=== PATIENT | female | born 1955 | race African-American/Black ===

== ENCOUNTER 2016-09-18 23:29 | Inpatient (IN) ==
[2016-09-18] MEDS: PROPOFOL 1,000 MG/100 ML BOTTLE IV SCH (23:50)
[2016-09-18] MEDS ORDERED: SUCCINYLCHOLINE 200 MG/10 ML VIAL IV STA (23:54)
[2016-09-18] MEDS ORDERED: MAGNESIUM SULF RIDER 2 GM in PREMIX 1 EACH IV STA (23:54)
[2016-09-18] MEDS ORDERED: MORPHINE 2 MG/1 ML SYRINGE IV STA (23:54)
[2016-09-18] MEDS ORDERED: ONDANSETRON ODT 4 MG TABLET PO STA (23:54)
[2016-09-18] MEDS ORDERED: methylPREDNISolone SOD SUC 125 MG/2 ML VIAL IV STA (23:54)
[2016-09-18] MEDS ORDERED: cefTRIAXone 1,000 MG in SODIUM CHLORIDE 0.9% 100 ML IV STA (23:54)
[2016-09-18] MEDS ORDERED: ETOMIDATE 20 MG/10 ML VIAL IV ONE (23:54)
[2016-09-18] MEDS ORDERED: PROPOFOL 1,000 MG/100 ML BOTTLE IV ONE (23:55)
[2016-09-18] MEDS ORDERED: ALBUTEROL 2.5 MG/3 ML NEB RESP TX ONE (23:57)
--- NOTE | 2016-09-19 00:03 | Emergency Department Note ---
Arrival - Arrival Chief Complaint: Shortness of Breath Stated Complaint: SOB ED Nursing Triage Note: pt has had a cold for a week and today got worse and pt is sob. Mode of Arrival: Wheelchair Time Seen by Provider: 09/18/16 23:54 - History of Present Illness HPI Narrative: The patient presents complaining of shortness of breath which began today and worsened acutely tonight. She denies chest pain. She does not know she has had fever but she states she felt "warm". The patient does still smoke cigarettes. She when she coughs she has not produced any sputum. That triage she was too dyspneic to contribute much more than that to the history. Allergies/Adverse Reactions: Allergies Allergy/AdvReac Type Severity Reaction Status Date / Time No Known Allergies Allergy Unverified 09/18/16 23:35 Home Medications: Home Medications Medication Instructions Recorded Confirmed Type No Known Home Medications [No 09/18/16 09/18/16 History Known Home Medications] Review of System - Review of System 12 point system: reviewed and no additional remarkable complaints except as stated Medical,Surgical,& Family Hx - Medical History Respiratory: History of: COPD - Social History Smoking Status: Unknown if ever smoked Frequency of Alcohol Use: Frequently Type of Drug Use: None Exam Physical Examination: General: Patient is well-developed and well-nourished with severe respiratory distress noted. GCS 15. The patient is too dyspneic to speak in more than 1 or 2 word sentences. HEENT: The extraocular muscles are intact. Oropharynx is moist. There is no erythema or exudate. The tympanic membranes are shiny bilaterally. Neck: There is no adenopathy. Full range of motion is noted without pain. The trachea is midline. No JVD is present. Lungs: There is normal excursion of the chest with the lungs demonstrating coarse breath sounds bilaterally. The patient is tachypneic. No subcostal retractions are present. There is no point tenderness present. Heart: The heart has a regular rate and rhythm with no gallops or murmurs. Note is made that she is in sinus tach with rate approximately 135 bpm. Abdomen: The abdomen is nontender and nondistended with no rebound, guarding, or masses. Bowel sounds are normal. Back: The back demonstrates a normal appearance with no evidence of trauma. Genitourinary: Not examined. Extremities: The extremities demonstrate no clubbing, cyanosis, or edema. The visualized range of motion is normal. They appear atraumatic. Neuro: Cranial nerves II through XII are checked and intact. There is no focal motor or sensory deficit seen in the extremities. Skin: Skin is warm and dry with no evidence of rash. Vital Signs: Vital Signs Temperature 95.8 F L 09/18/16 23:32 Pulse Rate 143 H 09/18/16 23:32 Respiratory Rate 14 09/18/16 23:58 Blood Pressure 213/178 09/18/16 23:32 O2 Sat by Pulse Oximetry 94 L 09/18/16 23:32 Course - Consultations Consultation #1: Dr. Wade will evaluate and admit the patient. Time: 00:33 Procedures - Intubation Time out performed: Yes sedative: Etomidate Mg Given: 10 paralytic: Succinylcholine Mg Given: 100 Laryngoscope: fiber optic video scope ET Tube Size: 8 ET Tube Uncuffed: No Tube Secured Depth (cm): 23 Tube Secured Location: teeth Tube Placement Confirmation: visualized tube passing through cords, equal breath sounds bilaterally, no breath sounds over epigastrium, confirmation by capnometry, confirmation detector color change Patient Tolerated Procedure: well Intubation Complications: none Results - Labs CBC & BMP: 09/18/16 23:52 09/18/16 23:52 Lab Results: I have reviewed the patients labs Labs: Lab Results WBC 6.8 T/CUMM (4-12) 09/18/16 23:52 RBC 5.38 MC/CUMM (3.8-5.5) 09/18/16 23:52 Hgb 15.1 GM/DL (12.0-16.0) 09/18/16 23:52 Hct 43.5 VOL% (35.7-47.0) 09/18/16 23:52 MCV 80.9 FL (87-102) L 09/18/16 23:52 MCH 28 PG (27-34) 09/18/16 23:52 MCHC 34.7 GM/DL (32-36) 09/18/16 23:52 RDW 13.1 % (9.3-17.3) 09/18/16 23:52 Plt Count 274 T/CUMM (130-400) 09/18/16 23:52 MPV 10.2 FL (9.6-12.0) 09/18/16 23:52 Neut % (Auto) 34.4 % (38.7-73.9) L 09/18/16 23:52 Lymph % (Auto) 49.9 % (21.3-54.2) 09/18/16 23:52 Webster % (Auto) 9.2 % (1.7-12.7) 09/18/16 23:52 Eos % (Auto) 5.3 % (0.00-10.9) 09/18/16 23:52 Baso % (Auto) 0.6 % (0.0-0.8) 09/18/16 23:52 Neut # (Auto) 2.4 10*3/uL (1.4-7.4) 09/18/16 23:52 Lymph # (Auto) 3.4 10*3/uL (1.4-4.0) 09/18/16 23:52 Webster # (Auto) 0.6 10*3/uL (0.11-0.8) 09/18/16 23:52 Eos # (Auto) 0.4 10*3/uL (0.0-0.87) 09/18/16 23:52 Baso # (Auto) 0.0 10*3/uL (0.0-0.2) 09/18/16 23:52 Immature Gran % 0.6 % 09/18/16 23:52 Nucleated RBC % 0.0 /100WBC 09/18/16 23:52 Immature Gran # 0.04 # 09/18/16 23:52 Nucleated RBCs # 0.00 10*3/uL 09/18/16 23:52 INR 1.0 09/18/16 23:52 PT Patient/Control Mix 10.4 SECS 09/18/16 23:52 Sodium 139 MMOL/L (136-145) 09/18/16 23:52 Potassium 3.8 MMOL/L (3.5-5.1) 09/18/16 23:52 Chloride 107 MMOL/L (98-107) 09/18/16 23:52 Carbon Dioxide 22 MMOL/L (21-32) 09/18/16 23:52 Anion Gap 13.8 MMOL/L (5.0-15.0) 09/18/16 23:52 BUN 10 MG/DL (7-18) 09/18/16 23:52 Creatinine 0.60 MG/DL (0.55-1.02) 09/18/16 23:52 GFR Calculation 143 ML/MIN 09/18/16 23:52 BUN/Creatinine Ratio 16.00 RATIO (6.00-20.00) 09/18/16 23:52 Glucose 175 MG/DL (74-106) H 09/18/16 23:52 Calculated Osmolality 279.5 MOS/KG (273-304) 09/18/16 23:52 Calcium 8.9 MG/DL (8.5-10.1) 09/18/16 23:52 Magnesium 2.1 MG/DL (1.8-2.4) 09/18/16 23:52 Total Bilirubin < 0.39 MG/DL (0.2-1.0) 09/18/16 23:52 AST 20 U/L (0-37) 09/18/16 23:52 ALT 23 U/L (13-56) 09/18/16 23:52 Alkaline Phosphatase 69 U/L (45-117) 09/18/16 23:52 Troponin I < 0.015 NG/ML (0.00-0.045) 09/18/16 23:52 Total Protein 7.2 G/DL (6.4-8.3) 09/18/16 23:52 Albumin 3.7 G/DL (3.4-5.0) 09/18/16 23:52 Globulin 3.5 G/DL (2.3-3.5) 09/18/16 23:52 Albumin/Globulin Ratio 1.0 RATIO (1.1-2.2) L 09/18/16 23:52 ABG pH 7.208 (7.35-7.45) L* 09/19/16 00:01 ABG pCO2 58.1 MM HG (35-48) H 09/19/16 00:01 ABG pO2 363.4 MM HG (80-95) H 09/19/16 00:01 ABG HCO3 22.6 MMOL/L (20-26) 09/19/16 00:01 ABG Total CO2 24.4 MMOL/L (23-27) 09/19/16 00:01 ABG O2 Saturation 99.4 % (95-100) 09/19/16 00:01 ABG Base Excess -6.3 MMOL/L (-2.5-2.5) L 09/19/16 00:01 - Diagnostic Findings Procedure: Chest x-ray: image reviewed by me (T was in satisfactory position. Overall appearance is of CHF.) Critical Care Time Critical Care Time: Yes Total Critical Care Time: 47 Disposition Clinical Impression: Congestive heart failure, Respiratory failure
[2016-09-19 00:08] LABS: Basophils % 0.6 % (0.0-0.8); Eosinophils # 0.4 10*3/uL (0.0-0.87); Eosinophils % 5.3 % (0.00-10.9); Hematocrit 43.5 VOL% (35.7-47.0); Hemoglobin 15.1 GM/DL (12.0-16.0); Immature Granulocytes % 0.6 %; Immature Granulocytes Absolute 0.04 #; Lymphocytes # 3.4 10*3/uL (1.4-4.0); Lymphocytes % 49.9 % (21.3-54.2); Mean Corpuscular HGB Conc 34.7 GM/DL (32-36); Mean Corpuscular Hemoglobin 28 PG (27-34); Mean Corpuscular Volume 80.9 FL (87-102); Mean Platelet Volume 10.2 FL (9.6-12.0); Monocytes # 0.6 10*3/uL (0.11-0.8); Monocytes % 9.2 % (1.7-12.7); Neutrophils # 2.4 10*3/uL (1.4-7.4); Neutrophils % 34.4 % (38.7-73.9); Platelet Count 274 T/CUMM (130-400); Red Blood Count 5.38 MC/CUMM (3.8-5.5); Red Cell Distribution Width 13.1 % (9.3-17.3); White Blood Count 6.8 T/CUMM (4-12)
[2016-09-19 00:13] LABS: PT Patient Result 10.4 SECS
[2016-09-19 00:16] LABS: ABG Base Excess -6.3 MMOL/L (-2.5-2.5); ABG HCO3 22.6 MMOL/L (20-26); ABG Oxygen Saturation 99.4 % (95-100); ABG PCO2 58.1 MM HG (35-48); ABG PO2 363.4 MM HG (80-95); ABG TCO2 24.4 MMOL/L (23-27)
[2016-09-19 00:18] LABS: ABG PH 7.208 (7.35-7.45)
[2016-09-19 00:19] LABS: Alanine Aminotransferase 23 U/L (13-56); Albumin 3.7 G/DL (3.4-5.0); Alkaline Phosphatase 69 U/L (45-117); Aspartate Amino Transferase 20 U/L (0-37); Bilirubin,Total < 0.39 MG/DL (0.2-1.0); Blood Urea Nitrogen 10 MG/DL (7-18); Calcium 8.9 MG/DL (8.5-10.1); Glucose 175 MG/DL (74-106); Magnesium 2.1 MG/DL (1.8-2.4); Osmolality,Calculated 279.5 MOS/KG (273-304); Potassium 3.8 MMOL/L (3.5-5.1); Sodium 139 MMOL/L (136-145); Total Protein 7.2 G/DL (6.4-8.3); Troponin I Only < 0.015 NG/ML (0.00-0.045)
[2016-09-19] MEDS ORDERED: LORazepam 2 MG/1 ML VIAL IV STA (01:00)
[2016-09-19] MEDS ORDERED: LORazepam 2 MG/1 ML VIAL ONE (01:14)
[2016-09-19 01:37] LABS: Eosinophils 4 % (0-10); Lymphocytes 52 % (20-55); Segmented Neutrophils 35 % (50-85)
[2016-09-19 01:38] LABS: Platelet Estimate Normal; Target Cells Few
[2016-09-19] MEDS ORDERED: ALBUTEROL/IPRATROPIUM 3 ML NEB RESP TX PRN (01:38)
[2016-09-19 01:39] LABS: Total Cells Counted 100
[2016-09-19] MEDS ORDERED: cefTRIAXone 1,000 MG VIAL ONE ×2 (01:41→01:42)
[2016-09-19] MEDS ORDERED: ONDANSETRON 4 MG/2 ML VIAL ONE (01:41)
[2016-09-19] MEDS ORDERED: MORPHINE 2 MG/1 ML SYRINGE ONE (01:42)
[2016-09-19] MEDS ORDERED: methylPREDNISolone SOD SUC 125 MG/2 ML VIAL ONE (01:42)
--- NOTE | 2016-09-19 01:47 | Hospitalist History & Physical ---
Assessment and Plan (1) Congestive heart failure Status: Acute Assessment and plan: Chest x-ray suggests pulmonary edema. Patient also has very high blood pressures at presentation so suspect that has something to do with it. Current Visit: Yes (2) Respiratory failure Status: Acute Assessment and plan: This likely a function of her bronchospastic disease. Patient has history of COPD and heavy smoking. Hypercapnic at least after the did ABG suspect there was also hypoxia but there is no documentation. There is an Aa gradient of some salt even with 100%. Get a pulmonary consult to manage the vent and advise on management of the pulmonary problems. Repeat ABG within an hour this assessment. Current Visit: Yes (3) Accelerated hypertension Status: Acute Assessment and plan: After the NG tube was putting start patient on amlodipine 5 mg daily. Also order hydralazine 10 mg IV every 6 hours as needed for systolic blood pressure greater than 180 mmHg. Start metoprolol 50 mg p.o. twice twice a day through the NG tube for the meantime. Obtain a 2D echo to evaluate for congestive heart failure wall motion and chambers status. Current Visit: Yes History of Present Illness Chief complaint: Shortness of breath/respiratory failure History of present illness: Ms. Cano is a 61 year old female presented to the emergency room complaining of shortness of breath that has been progressive. Patient also is coughing nonproductively. Is concerned that shows inferior. She is still quite a smoker. She was being evaluated in the emergency room she crushed ending up being intubated. At the time of my assessment patient was intubated and sedated with propofol. I noticed that the an ABG was done postintubation that showed pH 7.208 and a PCO2 of 58.1 oxygen was 363 on 100% FiO2. Chest x-ray shows cephalization of blood vessels but she is also wheezing quite a bit. Home Medications Medication Instructions Recorded Confirmed Type No Known Home Medications [No 09/18/16 09/18/16 History Known Home Medications] Allergies Allergy/AdvReac Type Severity Reaction Status Date / Time No Known Allergies Allergy Unverified 09/18/16 23:35 Medical,Surgical,& Family Hx - Medical History Respiratory: History of: COPD - Social History Smoking Status: Unknown if ever smoked Frequency of Alcohol Use: Frequently Type of Drug Use: None ROS unobtainable: due to endotracheal tube Review of systems: Back significant for the chief complaint history of presenting illness and past medical history of COPD and smoking Exam - Constitutional Vitals: Period Temp Pulse Resp BP Sys/Cast Pulse Ox Last 24 Hr 95.8 F 106-143 14-40 129-213/80-178 94-99 General appearance: over weight, other (Incommunicado) - Head Head exam: Present: normocephalic, atraumatic - Eye Eye exam: Present: other (Anicteric sclera no conjunctival petechiae) Pupils: Present: KARON - ENT ENT exam: Present: other (Order intubated) - Neck Neck exam: Present: other (Orally intubated) - Respiratory Respiratory exam: Present: other (Bilateral wheezing and admits to rales and rhonchi) - Cardiovascular Cardiovascular exam: Present: regular rate and rhythm, other (With occasional ectopy on telemetry see apices with aberrant conduction suggested) - GI/Abdominal GI/Abdominal exam: Present: normal bowel sounds, soft - Extremities Exam Extremities exam: Present: other - Neurological Exam Neurological exam: Present: other (Vision is sedated with propofol) - Psychiatric Psychiatric exam: Present: other (And is sedated with propofol) - Skin Skin exam: Present: normal color, warm, dry Results - Labs CBC & BMP: 09/18/16 23:52 09/18/16 23:52 Lab Results: I have reviewed the past 24 hour labs
[2016-09-19] MEDS ORDERED: ONDANSETRON 4 MG/2 ML VIAL IV STA (01:56)
[2016-09-19] MEDS ORDERED: PROPOFOL 1,000 MG/100 ML BOTTLE IV ONE (02:45)
[2016-09-19] MEDS ORDERED: MAGNESIUM SULF RIDER 50 ML IV ONE (02:50)
[2016-09-19] MEDS ORDERED: SUCCINYLCHOLINE 200 MG/10 ML VIAL ONE (02:52)
[2016-09-19] MEDS ORDERED: VECURONIUM 10 MG VIAL IV ONE (02:52)
[2016-09-19] MEDS ORDERED: ETOMIDATE 20 MG/10 ML VIAL IV ONE (02:52)
[2016-09-19 03:05] LABS: ABG Base Excess -2.3 MMOL/L (-2.5-2.5); ABG HCO3 22.5 MMOL/L (20-26); ABG Oxygen Saturation 99.3 % (95-100); ABG PCO2 50.6 MM HG (35-48); ABG TCO2 21.7 MMOL/L (23-27); Allen Test Positive; Pt O2 Delivery Device Ventilator
[2016-09-19] MEDS: LINEZOLID INJ 600 MG in PREMIX 1 EACH IV SCH ×2 (04:57→16:00)
[2016-09-19 05:03] LABS: Amorphous Crystals,Urine Occasional /HPF (Few); Apearance,Urine CLOUDY (Clear); Bacteria,Urine Occasional /HPF (Few); Bilirubin,Urine Negative (Negative); Blood, Urine Negative (Negative); Glucose,Urine (UA) 50 mg/dL (Negative); Hyaline Casts,Urine 20 /LPF (0-3); Ketones,Urine Negative (Negative); Mucus,Urine Many /LPF (Occasional); Nitrite,Urine Negative (Negative); Protein,Urine 100 MG/DL; RBC,Urine 3 /HPF (0-4); Squamous Epithelial Cell,Urine Occasional /HPF (0-10); Urine Urobilinogen < 2.0 EU/DL (0.2-1.0); WBC,Urine 4 /HPF (0-6)
[2016-09-19 05:06] LABS: Urine Color Yellow (Yellow)
[2016-09-19] MEDS: CEFEPIME 1,000 MG in SODIUM CHLORIDE 0.9% 100 ML IV SCH ×3 (05:36→22:24)
--- NOTE | 2016-09-19 07:30 | XRay Report ---
Referring Physician: Faizan Albert Exam: XR chest 1V portable Date: September 18, 2016 at 11:48 PM Reason: Endotracheal tube placement Comparison: None Findings: An endotracheal tube is in place with its distal tip at the level of the aortic arch, projecting 3 cm above the liliana. The cardiac silhouette is mildly enlarged. The interstitial markings are prominent, suggesting mild pulmonary edema. Pneumonia is thought less likely but is also in the differential. No pneumothorax or pleural effusion is identified. No acute osseous process is seen. Impression: 1. An endotracheal tube is in place as above. 2. Mild cardiomegaly. 3. There is interstitial prominence bilaterally, suggesting mild pulmonary edema. Other considerations include pneumonia. PROCEDURE INTERPRETED AT [facility] DEPARTMENT OF RADIOLOGY Final Report Signed by: Dr. Jm Parra
[2016-09-19] MEDS: ALBUTEROL/IPRATROPIUM 3 ML NEB RESP TX SCH ×4 (07:34→23:49)
--- NOTE | 2016-09-19 07:49 | EKG Report ---
Stationary ECG Study [facility] Test Date: 09/19/2016 12:57:45 AM Pat Name: GAIRMA ADAM Department: Room: 129 Gender: F Turn Out: ELIEL : 1955 Requested by: Faizan Albert Order Number: [id number] Reading MD: ASHLEIGH STEIN Intervals Vidor Rate: 133 P: 999 KS: 0 QRS: 42 QRSD: 85 T: 79 QT: 332 QTc: 410 Interpretive Statements SINUS TACHYCARDIA POOR QUALITY TRACING Electronically Signed On 09-20-16 17:54:10 CDT by ASHLEIGH STEIN [email or web address]
[2016-09-19] MEDS ORDERED: FUROSEMIDE 40 MG/4 ML VIAL IM SCH (09:00)
[2016-09-19] MEDS: PROPOFOL 1,000 MG/100 ML BOTTLE IV SCH ×8 (09:04→22:25)
--- NOTE | 2016-09-19 09:41 | XRay Report ---
Referring Physician: Cooper Conroy Exam: XR chest 1V portable Date: September 19, 2016 at 9:14 AM Reason: Ventilation Comparison: Chest one view portable September 18, 2016 Findings: An endotracheal tube is again in place. Its distal tip projects 1.5 cm above the liliana today, which may be partially related to patient positioning. There is also a feeding tube which extends into the stomach and beyond the [id number]. The cardiac silhouette is again mildly enlarged. The interstitial markings are prominent bilaterally. This suggests mild pulmonary edema, but other considerations include pneumonia. No pneumothorax is identified. The osseous structures appear stable. Impression: 1. An endotracheal tube is again in place. Its distal tip projects 1.5 cm above the liliana today. 2. Mild cardiomegaly. 3. Persistent prominence of the interstitial markings. This could reflect mild pulmonary edema, but other considerations include pneumonia. The lungs are also not as well expanded today. PROCEDURE INTERPRETED AT [facility] DEPARTMENT OF RADIOLOGY Final Report Signed by: Dr. Jm Parra
--- NOTE | 2016-09-19 09:52 | Pulmonology Consult Note ---
History of Present Illness Chief complaint: Mechanical ventilation. Tobacco and ethanol abuse. History of present illness: Ms. Cano is a 61 year old black female whom I been asked to see in pulmonary consultation for management of mechanical ventilation and pulmonary status. This patient reportedly came to the emergency room last night said she was short of breath ended up intubated and on mechanical ventilation. She had hypercarbia and hypoxemia. She has not been here before we have very little information about her. I understand daughter in [place] was called and she did not know anything was wrong with the patient and she did say she is a heavy drinker and a heavy smoker. Patient is presently sedated and I have no other positive review of systems. Allergies none known Home medicines. None known Past history. COPD Social history. According to the daughter in [place] excessive alcohol and tobacco use Family history. Unavailable. Chest x-ray. 09/18/2016. My interpretation. Moderate cardiomegaly. Pulmonary arteries are top normal. Bilateral benign calcifications. Mediastinum is normal. Endotracheal tube is in good position. There are increased interstitial markings in the perihilar areas superiorly laterally and inferiorly. There is a possibility of an early right upper lung and right lower lung infiltrate. There is a background of fine punctate calcifications seen in all 5 lobes of the lung and. 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 Admit EKG (my interpretation) shows a sinus tachycardia with a rate of 133. Reyno is normal. There are nonspecific STs and T's I did not see any acute changes. ABGs on mechanical ventilation and FiO2 of 100% shows a pH 7.30. PCO2 is 50.6. PO2 is 296 and bicarb is 22.5. ABGs. Admit values. PH 7.208. PCO2 58.2. PO2 363 on an FiO2 of 100%. Bicarb 22.6 Lab. White count is 6800 with 34.4 neutrophils, 49.9 lymphocytes, 9.2 monocytes. H&H is 15.1/43.5 platelets are 274,000. Electrolytes are normal. Creatinine is 0.6 with a BUN of 10. Magnesium is normal liver function tests are normal troponins are negative. Nitrated peptide is 35. Protein albumin and globulin are normal urine shows specific gravity 1.030 and a small amount of protein and glucose. Urine drug screen. Negative. There are no other test and there is no other information available at the present time. Physical exam. Vital signs. See above Psychiatric/neurologic. Patient is sedated. Staff tells me off sedation she sits up and she can move all 4 extremities. Face is symmetrical. Lips and tongue are normal Neck. Symmetrical. No meningismus Lymphatics. No submandibular cervical supraclavicular or epitrochlear adenopathy Chest. Slightly hyperinflated. Large airway congestion. No definite wheezes. Heart. Rapid at 110. I do not hear murmur rub or gallop. Breasts. Deferred Abdomen. Nontender. Nondistended. Rare bowel sounds. Lower extremities. Mild overlying skin changes of chronic venous stasis. No obvious deep venous thrombophlebitis. Skin of the face and hands show no cancerous infectious lesions. There is chronic venous stasis over the distal lower extremities bilaterally. No other areas of skin were examined. The remainder the physical exam is negative. Impression. 1. Acute respiratory failure for oxygen and carbon dioxide. Etiology uncertain. Consider infection. Note that white count is low normal without left shift. Consider other causes such as pulmonary emboli. From a chest x- ray standpoint I did not see any evidence of congestive heart failure although the patient has cardiomegaly. 2. Intubation and mechanical ventilation secondary to #1 and #3 3. Underlying COPD 4. Tobacco abuse 5. Alcohol abuse 6. Presence of other conditions may arise as more history is obtained from either the patient and her family. Family is not presently available. Plan. 1. Ventilator parameters have been adjusted and weaning protocol has been started 2. Physical therapy protocol while on ventilator 3. Proton pump inhibitor protocol 4. Deep venous thrombophlebitis prevention protocol 5. Agree with antibiotics 6. Doppler venograms of the lower extremities 7. I have ordered x-rays ABGs and lab for today in the next several days. 8. Cold agglutinins 9. Legionella titer 10. Sputum for Gram stain culture and sensitivity 11. See orders Home Medications Medication Instructions Recorded Confirmed Type No Known Home Medications [No 09/18/16 09/18/16 History Known Home Medications] Allergies Allergy/AdvReac Type Severity Reaction Status Date / Time No Known Allergies Allergy Unverified 09/18/16 23:35 Exam (Pulmonay) H&P - Constitutional Vitals: Period Temp Pulse Resp BP Sys/Cast Pulse Ox Last 24 Hr 98.7 F 91-106 14-18 99-129/66-84 93-100 Medical,Surgical,& Family Hx - Medical History Respiratory: History of: COPD - Social History Smoking Status: Unknown if ever smoked Frequency of Alcohol Use: Frequently Type of Drug Use: None Results - Labs CBC & BMP: 09/18/16 23:52 09/18/16 23:52
[2016-09-19] MEDS ORDERED: DEXTROSE 50% 25 GM/50 ML VIAL IV PRN (10:43)
[2016-09-19] MEDS ORDERED: GLUCAGON 1 MG VIAL IM PRN (10:43)
[2016-09-19] MEDS: ENOXAPARIN 40 MG/0.4 ML SYRINGE SUBCUT SCH (13:38)
--- NOTE | 2016-09-19 14:01 | ECHO Report ---
Jeri Cano Exam Date: 09/19/2016 08:30 Referring Physician: Technologist: Edwige Lucio Age: 61 Ht (in): 67 Wt (lb): 232 Gender: F Exam Location: [facility] Echo Indications: acute CHF, Resp. Failure, HTN BP: 120 / 77 HR: 92 Rhythm: Sinus Technical Quality: Very technically difficult study IMPRESSIONS Very technically difficult study. The left ventricle appears to be mildly enlarged. It is difficult to assess wall motion left ventricular ejection fraction appears to be mildly reduced and is estimated at around 40%. The left atrium apears to be mildly enlarged Grossly normal mitral valve with trace mitral valve regurgitation. Trace tricuspid valve regurgitation. MEASUREMENTS (Male / Female) Normal Values 2D ECHO LV Diastolic Diameter PLAX 5.3 cm 4.2 - 5.9 / 3.9 - 5.3 cm LV Systolic Diameter PLAX 3.6 cm LV Fractional Shortening PLAX 31.3 % IVS Diastolic Thickness 1.4 cm 0.6 - 1.0 / 0.6 - 0.9 cm LVPW Diastolic Thickness 1.5 cm 0.6 - 1.0 / 0.6 - 0.9 cm RV Internal Dim ED PLAX 2.5 cm Aortic Root Diameter 2.3 cm LA Systolic Diameter LX 3.3 cm 3.0 - 4.0 / 2.7 - 3.8 cm DOPPLER TR Peak Velocity 141.0 cm/s TR Peak Gradient 8.0 mmHg FINDINGS Left Ventricle The left ventricle appears to be mildly enlarged. It is difficult to assess regional wall motion, but left ventricular ejection fraction appears to be mildly reduced and is estimated at around 40%. Right Ventricle Normal right ventricular size. Right Atrium Normal right atrial size. Left Atrium The left atrium apears to be mildly enlarged Mitral Valve Grossly normal mitral valve with trace mitral valve regurgitation. Aortic Valve Grossly normal aortic valve. Tricuspid Valve Morphologically normal tricuspid valve. Trace tricuspid valve regurgitation. Pulmonic Valve Mild pulmonic valve sclerosis. Trace pulmonary valve regurgitation. Pericardium No pericardial effusion. Aorta Normal size aortic root and proximal ascending aorta. Mendoza Christianson (Electronically Signed) Final Date: 19 Sep 2016 14:00
[2016-09-19] MEDS: methylPREDNISolone SOD SUC 40 MG/1 ML VIAL IV SCH ×2 (14:05→17:50)
[2016-09-19] MEDS: THIAMINE 200 MG/2 ML VIAL IM SCH (14:05)
[2016-09-19] MEDS: PANTOPRAZOLE 40 MG VIAL IV SCH (14:05)
[2016-09-19] MEDS: INSULIN REGULAR 100 UNIT/ML SUBCUT SCH ×2 (14:06→18:33)
--- NOTE | 2016-09-19 14:53 | Ultrasound Report ---
Bilateral lower extremity venous Doppler with campbell scale, Spectral Doppler and color-flow analysis performed and interpreted. Indication: Lower extremity swelling. Scanning over both common femoral veins, superficial femoral veins, greater saphenous veins and popliteal veins demonstrates normal compressibility, color flow, and augmentation. Impression: No evidence of DVT seen in either lower extremity. PROCEDURE INTERPRETED AT [facility] DEPARTMENT OF RADIOLOGY Final Report Signed by: Dr. Lynne Barlow
[2016-09-20] MEDS: PROPOFOL 1,000 MG/100 ML BOTTLE IV SCH ×9 (00:06→23:49)
[2016-09-20] MEDS: INSULIN REGULAR 100 UNIT/ML SUBCUT SCH ×4 (00:19→18:12)
[2016-09-20] MEDS: MIDAZOLAM 100 MG in SODIUM CHLORIDE 0.9% 80 ML IV SCH (02:17)
[2016-09-20] MEDS: methylPREDNISolone SOD SUC 40 MG/1 ML VIAL IV SCH ×3 (03:07→17:16)
[2016-09-20 03:38] LABS: Allen Test Positive; Pt O2 Delivery Device Ventilator
[2016-09-20 03:39] LABS: ABG Base Excess 3.5 MMOL/L (-2.5-2.5); ABG HCO3 27.5 MMOL/L (20-26); ABG PH 7.413 (7.35-7.45); ABG TCO2 24.4 MMOL/L (23-27)
[2016-09-20] MEDS: LINEZOLID INJ 600 MG in PREMIX 1 EACH IV SCH ×2 (06:06→17:16)
[2016-09-20] MEDS: CEFEPIME 1,000 MG in SODIUM CHLORIDE 0.9% 100 ML IV SCH ×3 (06:26→23:33)
[2016-09-20 06:39] LABS: Albumin 3.1 G/DL (3.4-5.0); Bilirubin,Total 0.6 MG/DL (0.2-1.0); Calcium 8.4 MG/DL (8.5-10.1); Osmolality,Calculated 285.5 MOS/KG (273-304); Potassium 4.2 MMOL/L (3.5-5.1); Total Protein 6.7 G/DL (6.4-8.3)
[2016-09-20 06:45] LABS: Magnesium 2.8 MG/DL (1.8-2.4); Phosphorous 2.7 MG/DL (2.5-4.9); Prealbumin 45.6 MG/DL (20-40)
[2016-09-20] MEDS: ALBUTEROL/IPRATROPIUM 3 ML NEB RESP TX SCH ×3 (07:53→19:50)
[2016-09-20] MEDS: THIAMINE 200 MG/2 ML VIAL IM SCH (08:58)
[2016-09-20] MEDS: ENOXAPARIN 40 MG/0.4 ML SYRINGE SUBCUT SCH (08:58)
[2016-09-20] MEDS: PANTOPRAZOLE 40 MG VIAL IV SCH (08:58)
[2016-09-20] MEDS: FUROSEMIDE 40 MG/4 ML VIAL IV SCH (08:59)
--- NOTE | 2016-09-20 09:01 | Physician Query Form ---
CLICK EDIT DOCUMENT TO SELECT QUERY ANSWER --> OK --> SIGN Little Albert RN, CCDS Certified Clinical Bridal Gown Fitter W) [phone] (f) [phone] [email or web address] PROVIDERS: Make your selection(s) from the choices in EACH section by typing an "x" and enter comments in the comment section. Please use your independent medical judgment in providing your response. This request does not imply that any particular answer is desired or expected. CLINICAL INDICATORS: (Providers should not edit this section) The medical record indicates that the patient was admitted with respiratory failure, CHF, BP of 213/178#, BNP of 452# and the patient is on IV Lasix. Please provide further specificity regarding CHF. ACUITY: (x ) Acute ( ) Chronic ( ) Acute on Chronic ( ) Clinically unable to determine TYPE: ( ) Systolic ( x) Diastolic ( ) Combined Systolic/Diastolic ( ) Other, please specify: ( ) Clinically unable to determine ( ) The patient does NOT have CHF COMMENTS: Use of terms such as suspected, likely, or probable (associated with a specific diagnosis that is being evaluated, monitored, or treated as if it exists) are acceptable and can be restated in the discharge summary if not ruled out. [facility]
[2016-09-20] MEDS: MULTIVITAMIN LIQUID (CENTRUM) 60 ML BOTTLE PO SCH (09:24)
--- NOTE | 2016-09-20 09:39 | Pulmonology Progress Note ---
Pulmonary - PN: Subj Interval history: Is a 61-year-old black female whom I saw in pulmonary consultation on 09/19/2016. I was asked to manage her pulmonary status and her mechanical ventilation. She came to the emergency room short of breath and required intubation mechanical ventilation. She had hypercarbia and hypoxemia. At this point we know very little about her except her daughter in [place] said that she is a heavy smoker and a heavy drinker. My impressions were 1. Acute respiratory failure for oxygen and carbon dioxide. Etiology uncertain. Consider infection. Note that white count is low normal without left shift. Consider other causes such as pulmonary emboli. From a chest x- ray standpoint I did not see any evidence of congestive heart failure although the patient has cardiomegaly. 2. Intubation and mechanical ventilation secondary to #1 and #3 3. Underlying COPD 4. Tobacco abuse 5. Alcohol abuse 6. Presence of other conditions may arise as more history is obtained from either the patient and her family. Family is not presently available. 09/20/2016. Weaning protocol was ordered to begin yesterday but for reasons I am not aware of this was not begun. I have asked that it be begun today. Patient is also supposed to be on physical therapy protocol. Her chest x-ray shows cardiomegaly there is some increased markings in the right middle lung and right lower lung and left lower lung. These probably represent a low-grade infection. CBC was not ordered for the day of admit white count was not impressive. Cold agglutinins Legionella titers are pending sputum for Gram stain cultures and sensitivities have not revealed anything. ABGs on mechanical ventilation FiO2 50% show a pH 7.41, PCO2 of 45, PO2 of 110 and a bicarb of 27.5. Electrolytes are normal. Creatinine is 0.8 with a BUN of 13 natruretic peptide is elevated at 452. Total protein is 6.7 and albumin is low at 3.1 Doppler venograms of the lower extremities. 09/19/2016. No deep venous thrombophlebitis Echocardiogram. 09/19/2016. Ejection fraction of 40%. Trace of mitral regurgitation Physical exam. Vital signs. See below Neurological. Arousable. Somewhat sedated. Cranial nerves appear to be intact the patient appears to move all 4 extremities with purpose Face. Symmetrical. Lips and tongue appear to be normal Neck. Symmetrical. No meningismus. Lymphatics. No submandibular cervical supraclavicular adenopathy. No epitrochlear adenopathy. Chest. Coarse loose large airway congestion. Heart. Slightly lateral PMI Abdomen. Positive bowel sounds Extremities. Nothing to suggest deep venous thrombophlebitis The remainder the physical exam is noncontributory Plan. 1. 09/19/2016. Ventilator parameters have been adjusted and weaning protocol has been started. 09/20/2016 -Ditto 2. 09/19/2016. Physical therapy protocol while on ventilator 3. Proton pump inhibitor protocol 4. Deep venous thrombophlebitis prevention protocol 5. Agree with antibiotics 7. 09/19/2016 I have ordered x-rays ABGs and lab for today in the next several days. 8. Cold agglutinins 9. Legionella titer 10. Sputum for Gram stain culture and sensitivity 11. 09/20/2016. This patient should be weaned and will. Echocardiogram shows ejection fraction of 40% and today her BNP is slightly elevated so will have to watch her closely for volume overload. I am not quite sure why she ended up in respiratory failure requiring intubation mechanical ventilation. She definitely has underlying COPD and she may have had an acute pneumonia. Exam (Progress Note) - Constitutional Vitals: Period Temp Pulse Resp BP Sys/Cast Pulse Ox Last 24 Hr 96.9 F-99.1 F 85-99 14-22 99-185/59-119 97-100 Results - Labs CBC & BMP: 09/18/16 23:52 09/20/16 04:39
--- NOTE | 2016-09-20 09:55 | XRay Report ---
XR chest 1V portable Indication: Ventilator patient Comparison: 19 sep 2016 Findings: The heart and mediastinum are stable in size and configuration. The lines and tubes are unchanged in position. The pulmonary vascularity is prominent but similar to previous exam. No lung infiltrates, effusions, pneumothorax or other abnormality is demonstrated. Impression: No significant change PROCEDURE INTERPRETED AT [facility] DEPARTMENT OF RADIOLOGY Final Report Signed by: Dr. Tres Latif
--- NOTE | 2016-09-20 11:03 | EKG Report ---
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
--- NOTE | 2016-09-20 11:27 | Hospitalist Progress Note ---
Assessment and Plan (1) Respiratory failure Status: Acute Assessment and plan: 1)acute respiratory failure- on vent day 2. LE dopplers negative. at this point , best explanation for resp failure is mild pneumonia (Rmid and lower lung) and HTN on COPD. She walked into the ER and was triaged quickly due to her distress and intubated shortly after that. initiate weaning protocol, steroids, broad spectrum antibiotics, nebs. 2)HTN- controlled now. echo with LVEF of 40% with BNP up a bit- we have no idea what her baseline might be. will need to start SHERRI, then coreg if pressure permits. on lasix now. Her BP came down once intubated. add asa. 3)on no home meds per family Current Visit: Yes (2) Congestive heart failure Status: Acute Current Visit: Yes (3) Accelerated hypertension Status: Acute Current Visit: Yes Hospitalist: Subjective Interval history: Mrs Cano is stable on vent overnight, will start CPAP today. She is difficult to sedate and is requiring versed infusion on top of propofol to keep her comfortable. She is alert and moves all 4 and fights the vent when her sedation is decreased. Exam - Constitutional Vitals: Period Temp Pulse Resp BP Sys/Cast Pulse Ox Last 24 Hr 96.9 F-99.1 F 85-99 14-22 79-185/59-119 97-100 General appearance: no acute distress (when sedated as she is this mornign), over weight - Respiratory Respiratory exam: Present: rhonchi. Absent: wheezes - Cardiovascular Cardiovascular exam: Present: regular rate and rhythm - GI/Abdominal GI/Abdominal exam: Present: normal bowel sounds, soft. Absent: tenderness - Extremities Exam Extremities exam: Absent: edema - Neurological Exam Neurological exam: Present: other (moves all 4, bucks the vent when sedation turned down. not following commands per nurses) - Skin Skin exam: Present: warm, dry Results - Labs CBC & BMP: 09/18/16 23:52 09/20/16 04:39
[2016-09-20 12:34] LABS: CKMB % 0.4 %
[2016-09-20 12:35] LABS: Troponin I Only 0.281 NG/ML (0.00-0.045)
[2016-09-20] MEDS: LISINOPRIL 10 MG TABLET PO SCH ×2 (12:50→20:51)
[2016-09-20] MEDS: ASPIRIN CHEW 81 MG TABLET PO SCH (12:50)
--- NOTE | 2016-09-20 13:51 | Cardiology Consult Note ---
Assessment and Plan - Time spent with patient Time spent with patient: Greater than 30 minutes (1) Abnormal EKG Status: Acute Assessment and plan: The patient has a markedly abnormal EKG which is a new finding. The diffuse nature of her T-wave inversion makes me think of a stroke. The marked elevation of CPK with a trivial change in troponin also makes me think of a stroke. We are going to start with a CT of the head and also a CT PE protocol. Depending on the results she may need further workup with MRI of the brain. For now, I do not think I would pursue cardiac catheterization. I will follow along with you. Current Visit: Yes (2) Accelerated hypertension Status: Acute Current Visit: Yes (3) Respiratory failure Status: Acute Current Visit: Yes History of Present Illness - Consult Narrative History of present illness: Ms. Cano is a 61 year old female who has no known history of cardiac disease. She came into the hospital a few days ago with severe dyspnea and respiratory failure requiring intubation. At the time I am seeing her she is intubated and sedated in the CCU. I cannot get any history from her at this time. History is obtained from the chart, the nursing staff, and my discussions with Dr. Chamorro today. At the time of her hospital admission her BNP was normal, she denied chest pain, yet she required intubation. Her initial EKG did not show any acute ST-T abnormalities. Her initial troponin was normal. She did have an echocardiogram but it is extremely technically limited. Her left ventricular ejection fraction was estimated around 40%, but it could be a bit higher or lower. She did have extremely high blood pressure initially, but this is improved over her hospital stay. She does have a history of COPD and tobacco abuse which could have been the reason for her respiratory failure. At any rate, the CCU nursing staff today noted that her telemetry showed new T- wave inversions on her monitor, and a repeat 12-lead EKG was performed. This EKG showed new deep symmetric T-wave inversions and cardiology was consulted to evaluate for new cardiac ischemia. In reviewing her EKG, these changes are very diffuse and nonlocalizing. They actually make me more suspicious of a stroke than cardiac ischemia. Her cardiac enzyme panel also is concerning for infarct of something other than her heart. Her CPK to MB ratio is normal and her troponin is only 0.24. Her CPK is almost 5400. This also makes me suspicious that something else infarcted, and with her EKG changes are most suspicious of a stroke. Unfortunately, the patient is sedated I really cannot get any significant history or neurologic evaluation. This case was discussed today with Dr. Chamorro extensively CC: Jazzy Aly MD - Home Medications and Allergies Home Medications: Home Medications Medication Instructions Recorded Confirmed Type No Known Home Medications [No 09/18/16 09/18/16 History Known Home Medications] Allergies/Adverse Reactions: Allergies Allergy/AdvReac Type Severity Reaction Status Date / Time No Known Allergies Allergy Unverified 09/18/16 23:35 12 point system: reviewed and no additional remarkable complaints except as stated Medical,Surgical,& Family Hx - Medical History Respiratory: History of: COPD - Social History Smoking Status: Unknown if ever smoked Frequency of Alcohol Use: Frequently Type of Drug Use: None Physical Examination Vital Signs Temp Pulse Resp BP Pulse Ox 95.8 F L 143 H 40 H 213/178 94 L 09/18/16 23:32 09/18/16 23:32 09/18/16 23:32 09/18/16 23:32 09/18/16 23:32 Other: General: Appears well developed, well nourished, resting comfortably intubated and sedated on the ventilator HEENT: Normocephalic, atraumatic Neck: Supple Neck, Midline Trachea, No Bruit, No JVD Cardiac: Regular rhythm, No Murmur, no gallop, no rub Lungs: Coarse breath sounds per the ventilator no overt rales or wheeze Neuro: Difficult to assess as the patient is intubated and sedated Abdomen: Soft, Active Bowel Sounds, No Masses, No Pulsations/Bruits Skin: Normal color, no rash Extremities: No Clubbing, No Cyanosis, No Edema, Normal Upper Extr. Pulses Musculoskeletal: No acute abnormality noted Psychiatric: Cannot be assessed as the patient is intubated and sedated Result/EKG - Labs CBC & BMP: 09/18/16 23:52 09/20/16 04:39 Lab Results: I have reviewed the past 24 hour labs Labs: Laboratory Results - last 24 hr 09/19/16 09/19/16 09/20/16 10:43 17:30 00:13 ABG pH ABG pCO2 ABG pO2 ABG HCO3 ABG Total CO2 ABG O2 Saturation ABG Base Excess FiO2 Sodium Potassium Chloride Carbon Dioxide Anion Gap BUN Creatinine GFR Calculation BUN/Creatinine Ratio Glucose POC Glucose 223 H 185 H Calculated Osmolality Calcium Phosphorus Magnesium Total Bilirubin AST ALT Alkaline Phosphatase Total Creatine Kinase CK-MB (CK-2) CK and CKMB Interp Troponin I B-Natriuretic Peptide Total Protein Albumin Globulin Albumin/Globulin Ratio Prealbumin Cold Agglutinin Screen 1:2 09/20/16 09/20/16 09/20/16 03:20 04:39 04:39 ABG pH 7.413 ABG pCO2 45.0 ABG pO2 110.0 H ABG HCO3 27.5 H ABG Total CO2 24.4 ABG O2 Saturation 98.0 ABG Base Excess 3.5 H FiO2 50.00 Sodium 139 Potassium 4.2 Chloride 103 Carbon Dioxide 27 Anion Gap 13.2 BUN 13 Creatinine 0.80 GFR Calculation 116 BUN/Creatinine Ratio 16.00 Glucose 257 H POC Glucose Calculated Osmolality 285.5 Calcium 8.4 L Phosphorus Magnesium Total Bilirubin 0.60 AST 147 H ALT 38 Alkaline Phosphatase 53 Total Creatine Kinase CK-MB (CK-2) CK and CKMB Interp Troponin I B-Natriuretic Peptide 452 H Total Protein 6.7 Albumin 3.1 L Globulin 3.6 H Albumin/Globulin Ratio 0.8 L Prealbumin Cold Agglutinin Screen 09/20/16 09/20/16 09/20/16 04:39 06:23 11:06 ABG pH ABG pCO2 ABG pO2 ABG HCO3 ABG Total CO2 ABG O2 Saturation ABG Base Excess FiO2 Sodium Potassium Chloride Carbon Dioxide Anion Gap BUN Creatinine GFR Calculation BUN/Creatinine Ratio Glucose POC Glucose 202 H Calculated Osmolality Calcium Phosphorus 2.7 Magnesium 2.8 H Total Bilirubin AST ALT Alkaline Phosphatase Total Creatine Kinase 5295 H CK-MB (CK-2) 20.6 H CK and CKMB Interp 0.4 Troponin I 0.281 H D B-Natriuretic Peptide Total Protein Albumin Globulin Albumin/Globulin Ratio Prealbumin 45.6 H Cold Agglutinin Screen 09/20/16 11:33 ABG pH ABG pCO2 ABG pO2 ABG HCO3 ABG Total CO2 ABG O2 Saturation ABG Base Excess FiO2 Sodium Potassium Chloride Carbon Dioxide Anion Gap BUN Creatinine GFR Calculation BUN/Creatinine Ratio Glucose POC Glucose 181 H Calculated Osmolality Calcium Phosphorus Magnesium Total Bilirubin AST ALT Alkaline Phosphatase Total Creatine Kinase CK-MB (CK-2) CK and CKMB Interp Troponin I B-Natriuretic Peptide Total Protein Albumin Globulin Albumin/Globulin Ratio Prealbumin Cold Agglutinin Screen - EKG EKG results: interpreted by me
--- NOTE | 2016-09-20 14:42 | CT Report ---
Referring physician: Jazzy Aly Exam: CT brain without contrast Date: September 20, 2016 Comparison: None Reason: Evaluate for stroke, altered level of consciousness, respiratory failure The patient is an inpatient who was admitted on September 19, 2016. Technique: Axial images of the head were obtained without the use of contrast. Total DLP was 1664.7 mGy*cm. Findings: Artifact is present on some images. There is mild generalized cerebral atrophy/volume loss and probable mild chronic microvascular ischemic change. No hydrocephalus or midline shift is present. There is no evidence of recent intracranial hemorrhage, abnormal mass effect or acute infarction. No acute osseous process is seen. There is scattered mucosal thickening within the ethmoid air cells and sphenoid sinuses. A nasogastric tube is also in place. The mastoid air cells appear clear. Impression: No acute intracranial process is identified. The CT exam was performed using one or more of the following dose reduction techniques: Automated exposure control and adjustment of the mA and/or kV according to patient size. PROCEDURE INTERPRETED AT [facility] DEPARTMENT OF RADIOLOGY Final Report Signed by: Dr. Jm Parra
--- NOTE | 2016-09-20 14:53 | CT Report ---
EXAM: CT chest PE study DATE: September 20, 2016 COMPARISON: None REASON: Respiratory failure TECHNIQUE: Axial images of the chest were obtained after administration of 80 cc of Omnipaque 350 intravenous contrast. Coronal/sagittal reformatted images and coronal/sagittal MIP images were also acquired. The study was performed per pulmonary embolism protocol. Total DLP was 862.1 mGy*cm. FINDINGS: Pulmonary arteries: There is suboptimal opacification of some of the distal pulmonary arteries. However, there is a filling defect within one of the segmental pulmonary arteries within the left lower lobe. This is concerning for a small pulmonary embolus. No definite additional pulmonary emboli are identified. Vascular/heart: The abdominal aorta is normal in size without evidence of dissection. There is minimal scattered calcified plaque at the arteries. The heart is upper normal in size, but no pericardial effusion is seen. Lymph nodes: There are a few borderline prominent mediastinal lymph nodes. An AP window lymph node on image 64 measures 0.9 cm in short axis diameter. There are also a few small and upper normal size hilar and bilateral axillary lymph nodes. Other mediastinum: An endotracheal tube is in place with its distal tip approximately 1.5 cm above the liliana. There is also a feeding tube with its distal tip at the junction of the gastric body and fundus. Chest wall: A small lipoma is suspected at the right upper back, overlying the right second rib. Lungs: There are mild opacities within both lungs, mainly within the dependent aspects. This is most consistent with atelectasis. No pneumothorax or pleural effusion is identified. Bones: There is mild degenerative change at the thoracic spine. No acute osseous process is identified. Upper abdomen: No acute process is seen within the visualized upper abdomen. IMPRESSION: 1. Some of the distal pulmonary arteries are not well evaluated due to artifact/poor opacification. However, there is a filling defect within a segmental pulmonary artery within the left lower lobe. This is concerning for a pulmonary embolus. 2. There are mild opacities within both lungs, mainly within the dependent aspects. This is most consistent with atelectasis. 3. An endotracheal tube and feeding tube are in place. 4. A small lipoma is suspected at the right upper back, overlying the right second rib. Findings were discussed with Dr. Aly on September 20, 2016 at 2:50 PM. This is a critical test. PROCEDURE INTERPRETED AT [facility] DEPARTMENT OF RADIOLOGY Final Report Signed by: Dr. Jm Parra
[2016-09-20 15:00] LABS: CKMB % 0.4 %
[2016-09-20 15:01] LABS: Troponin I Only 0.226 NG/ML (0.00-0.045)
[2016-09-20 15:49] LABS: Risk Ratio 5.7
[2016-09-20] MEDS: HEPARIN DRIP 25,000 UNITS/500 ML PREMIX IV SCH (15:50)
[2016-09-20 16:00] LABS: PT Patient Result 10.4 SECS; Partial Thromboplastin Time 27.8 SECS (0-40)
--- NOTE | 2016-09-20 16:31 | Event Note ---
The case was discussed with Dr. Chamorro today on a couple of occasions. CT angiogram did show evidence of at least a small pulmonary embolus. CT of the head did not show any sort of hemorrhage, but also did not show a stroke. At this point I think it is best to start anticoagulation for the pulmonary embolus , which should also help if the patient had an ischemic stroke. I am still suspicious she may have had a stroke and repeat CT in a day or 2 and/or MRI might be indicated depending on how she does clinically.
--- NOTE | 2016-09-20 17:28 | Ultrasound Report ---
Exam: US carotid duplex BI Date: 09/20/2016 3:04 PM Indication: Possible stroke Technique: Duplex scan of the bilateral carotid arteries using B-mode/grayscale imaging and Doppler spectral analysis and color flow. Findings: Right Flow velocities centimeters per second Common carotid artery: 94 Proximal ICA: 48 Distal ICA: 63 External carotid artery: 99 Vertebral artery: 48 with antegrade flow ICA/CCA ratio: 0.7 Measurements in millimeters Distal ICA: 5.4 Left: Flow velocities centimeters per second Common carotid artery: 98 Proximal ICA: 104 Distal ICA: 101 External carotid artery: 90 Vertebral artery: 69 with antegrade flow ICA/CCA ratio: 1.1 Measurements in millimeters Distal ICA: 7.2 Multifocal primarily calcified plaque is noted within both internal carotid arteries, which are slightly more prominent on the left. There is no suggestion of high-grade focal stenosis by ultrasound criteria. Color flow is present in all visualized vessels with Doppler analysis. Impression: Multifocal mild atherosclerotic plaque with no suggestion of high-grade stenosis by ultrasound criteria. Today studies were performed utilizing indirect NASCET criteria The ultrasound images were stored and captured PROCEDURE INTERPRETED AT [facility] DEPARTMENT OF RADIOLOGY Final Report Signed by: Rommel Mckoy
[2016-09-20 18:40] LABS: CKMB % 0.4 %
[2016-09-20 18:45] LABS: Troponin I Only 0.2 NG/ML (0.00-0.045)
[2016-09-20] MEDS: ROSUVASTATIN 10 MG TABLET PO SCH (20:51)
[2016-09-21] MEDS: methylPREDNISolone SOD SUC 40 MG/1 ML VIAL IV SCH ×3 (00:04→16:51)
[2016-09-21] MEDS: INSULIN REGULAR 100 UNIT/ML SUBCUT SCH ×4 (00:04→18:32)
[2016-09-21] MEDS: ALBUTEROL/IPRATROPIUM 3 ML NEB RESP TX SCH ×4 (01:14→21:23)
[2016-09-21] MEDS: PROPOFOL 1,000 MG/100 ML BOTTLE IV SCH ×6 (02:05→22:57)
[2016-09-21] MEDS: MIDAZOLAM 100 MG in SODIUM CHLORIDE 0.9% 80 ML IV SCH ×2 (02:26→18:00)
[2016-09-21 03:25] LABS: ABG HCO3 28.9 MMOL/L (20-26); ABG Oxygen Saturation 98.8 % (95-100); ABG PCO2 51.9 MM HG (35-48); ABG TCO2 27.1 MMOL/L (23-27)
[2016-09-21 05:09] LABS: Bilirubin,Total 0.4 MG/DL (0.2-1.0); Calcium 9.2 MG/DL (8.5-10.1); Osmolality,Calculated 288.5 MOS/KG (273-304); Potassium 4.5 MMOL/L (3.5-5.1); Total Protein 6.3 G/DL (6.4-8.3)
[2016-09-21] MEDS: LINEZOLID INJ 600 MG in PREMIX 1 EACH IV SCH ×2 (05:15→16:51)
[2016-09-21] MEDS: CEFEPIME 1,000 MG in SODIUM CHLORIDE 0.9% 100 ML IV SCH ×3 (06:12→21:44)
--- NOTE | 2016-09-21 07:13 | Pulmonology Progress Note ---
Pulmonary - PN: Subj Interval history: Patient is a 61-year-old the ventilator that came in with acute respiratory failure. She has been reasonably stable on the ventilator. She is a heavy smoker and may have some COPD. She has a history of alcohol abuse and may have a mild cardiomyopathy. She has been treated for mild heart failure and pneumonia. She has been fairly stable on the ventilator. She is doing some weaning trials now. Her chest x-ray is improved. Her oxygenation is doing better. Exam (Progress Note) - Constitutional Vitals: Period Temp Pulse Resp BP Sys/Cast Pulse Ox Last 24 Hr 96.1 F-98.0 F 83-104 14-29 79-167/53-100 96-100 General appearance: normal weight, no acute distress (The patient is sedated on the ventilator at present) - Head Head exam: Present: normal inspection, normocephalic - Eye Eye exam: Present: EOMI. Absent: scleral icterus Pupils: Present: KARON - ENT ENT exam: Present: other (ET tube is in good position.) - Neck Neck exam: Absent: lymphadenopathy, meningismus, thyromegaly - Respiratory Respiratory exam: Present: rhonchi. Absent: accessory muscle use, prolonged expiratory phase, wheezes - Cardiovascular Cardiovascular exam: Present: regular rate and rhythm. Absent: gallop, JVD, systolic murmur - GI/Abdominal GI/Abdominal exam: Present: normal bowel sounds, soft. Absent: organomegaly, tenderness - Extremities Exam Extremities exam: Absent: calf tenderness, edema - Neurological Exam Neurological exam: Present: altered (Patient is sedated now but will respond when off sedation. She does get agitated at times.) - Psychiatric Psychiatric exam: Present: agitated - Skin Skin exam: Present: warm, dry Results - Labs CBC & BMP: 09/18/16 23:52 09/21/16 03:58 Labs: PO2 is 149 with a PCO2 of 52 and a pH of 7.39 - Diagnostic Findings Procedure: Chest x-ray: image reviewed by me, report reviewed by me (Her chest x -ray is fairly clear now.) Assessment and Plan (1) COPD (chronic obstructive pulmonary disease) Status: Acute Assessment and plan: The patient is a heavy smoker and looks like she has some CO2 retention. Will adjust the ventilator and continue weaning. She will continue with bronchodilator therapy. Current Visit: Yes (2) Congestive heart failure Status: Acute Assessment and plan: Her ejection fraction around 40% and her x-ray suggested some mild heart failure. This is improved. Current Visit: Yes (3) Respiratory failure Status: Acute Assessment and plan: The patient came in with respiratory failure but is stable on the ventilator at present. We will continue with weaning trials. Current Visit: Yes (4) Accelerated hypertension Status: Acute Assessment and plan: The patient's blood pressure is under good control at present. Current Visit: Yes
[2016-09-21] MEDS: HEPARIN DRIP 25,000 UNITS/500 ML PREMIX IV SCH ×2 (07:31→17:15)
--- NOTE | 2016-09-21 09:17 | XRay Report ---
Referring Physician: Cooper Conroy Exam: XR chest 1V portable Date: September 21, 2016 at 3:31 AM Reason: Ventilator Comparison: Chest one view portable September 20, 2016 Findings: An endotracheal tube and feeding tube are again in place. The cardiac silhouette is upper normal in size. The interstitial markings are mildly prominent bilaterally, which could reflect minimal pulmonary edema. There is also minimal atelectasis at the lung bases. No pneumothorax is identified. No acute osseous process is seen. Impression: There has been no significant change when considering differences in patient positioning and motion artifact on the prior study. PROCEDURE INTERPRETED AT [facility] DEPARTMENT OF RADIOLOGY Final Report Signed by: Dr. Jm Parra
[2016-09-21] MEDS: ASPIRIN CHEW 81 MG TABLET PO SCH (09:23)
[2016-09-21] MEDS: FUROSEMIDE 40 MG/4 ML VIAL IV SCH (09:23)
[2016-09-21] MEDS: LISINOPRIL 10 MG TABLET PO SCH ×2 (09:23→21:43)
[2016-09-21] MEDS: MULTIVITAMIN LIQUID (CENTRUM) 60 ML BOTTLE PO SCH (09:23)
[2016-09-21] MEDS: PANTOPRAZOLE 40 MG VIAL IV SCH (09:24)
[2016-09-21] MEDS: THIAMINE 200 MG/2 ML VIAL IM SCH (09:24)
--- NOTE | 2016-09-21 10:54 | EKG Report ---
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
--- NOTE | 2016-09-21 10:57 | Hospitalist Progress Note ---
Assessment and Plan - Time spent with patient Time spent with patient: Greater than 30 minutes (critical care time 43 min to include discussion with family and RN) (1) Respiratory failure Status: Acute Assessment and plan: Acute hypoxic and hypercapnic resp failure. Multifactorial to include suspected underlying COPD with exacerbation and acute PE. Treating empirically with abx, nebs, IV steroids. Tolerating spontaneous breathing trial. Current Visit: Yes (2) Congestive heart failure Status: Acute Assessment and plan: some concern for pulm edema/chf. Cardiology consulted. Echo pending. Current Visit: Yes Qualifiers: Congestive heart failure type: unspecified congestive heart failure type (3) COPD (chronic obstructive pulmonary disease) Status: Acute Current Visit: Yes (4) Acute encephalopathy Status: Acute Assessment and plan: CT head with no acute process. Pt follows commands and moves all ext. CVA has not yet been completely excluded. Hope to wean off vent soon; that will help in the investigation. If not off vent by Friday will repeat CT head then. Current Visit: Yes Hospitalist: Subjective Interval history: Findings from yesterday noted. Pt awakens and interacts with family and staff. Currently on spontaneous breathing trial and tolerating well. Initial concern for "pneumonia" not evident on CT chest and follow up cxr. Exam - Constitutional Vitals: Period Temp Pulse Resp BP Sys/Cast Pulse Ox Last 24 Hr 96.1 F-98.0 F 78-104 12-36 95-167/53-100 96-100 General appearance: over weight, other (sedated on vent) - Head Head exam: Present: normocephalic, atraumatic - Eye Eye exam: Absent: conjunctival injection, scleral icterus Pupils: Present: KARON - ENT ENT exam: Present: other (ETT in place) - Neck Neck exam: Present: normal inspection. Absent: lymphadenopathy - Respiratory Respiratory exam: Present: rhonchi (spon breathing on vent. occasional rhonchi) - Cardiovascular Cardiovascular exam: Present: regular rate and rhythm. Absent: gallop, rubs - GI/Abdominal GI/Abdominal exam: Present: normal bowel sounds. Absent: distended, tenderness - Extremities Exam Extremities exam: Present: normal inspection - Neurological Exam Neurological exam: Present: other (moves all ext) - Skin Skin exam: Present: normal color, warm, dry Results - Labs CBC & BMP: 09/18/16 23:52 09/21/16 03:58 - Diagnostic Findings Procedure: CT - chest: report reviewed by me, CT: report reviewed by me
--- NOTE | 2016-09-21 10:57 | Cardiology Progress Note ---
Assessment and Plan (1) Pulmonary embolus Status: Acute Assessment and plan: This may be the reason for the patient's respiratory failure. She has been started on anticoagulation. Current Visit: Yes (2) Abnormal EKG Status: Acute Assessment and plan: The patient has a markedly abnormal EKG which is a new finding. The diffuse nature of her T-wave inversion makes me think of a stroke. The marked elevation of CPK with a trivial change in troponin also makes me think of a stroke. Initial CT of the head was benign, but CT angiogram did show pulmonary embolus. She has been started on anticoagulation. I am still strongly suspicious that she had a stroke based on her EKG and cardiac enzyme profile. I think we should repeat her CT in a day or 2 to reevaluate for stroke. At this point she is on proper anticoagulation for this and her pulmonary embolus. For now, I do not think I would pursue cardiac catheterization. I will follow along with you. Current Visit: Yes (3) Accelerated hypertension Status: Acute Current Visit: Yes (4) Respiratory failure Status: Acute Current Visit: Yes Cardiology - PN: Subj Interval history: Patient remains intubated and sedated in the CCU. Her EKG remains unchanged with deep symmetric diffuse T-wave inversions that are most consistent with intracranial process/stroke. Her CPK elevation with trivial troponin changes also suggestive of stroke. Initial CT scan did not reveal a stroke, but I think we need to repeat this in a day or 2 to see if there is any change. Her CT angiogram did show pulmonary embolus and she has been started on anticoagulation. This may have been the source of the patient's respiratory failure. There have been no new cardiac issues overnight. The nursing staff reports that when the patient's sedation is lightened she does wake up and seemed to respond appropriately and move her extremities. At the time I was seeing her she was sedated and could not get any significant response from her. Current Medications Albuterol/Ipratropium (Duoneb) 3 ml RESP TX RT Q4H PRN PRN Reason: Shortness of Breath/Wheezing Albuterol/Ipratropium (Duoneb) 3 ml RESP TX RT Q6H [facility] Last Admin: 09/21/16 08:22 Dose: 3 ml Aspirin () 81 mg PO DAILY [facility] Last Admin: 09/21/16 09:23 Dose: 81 mg Dextrose/Water (D50) 25 gm IV PRN PRN PRN Reason: Hypoglycemia with IV access Furosemide (Lasix Inj) 40 mg IV DAILY [facility] Last Admin: 09/21/16 09:23 Dose: 40 mg Glucagon () 1 mg IM PRN PRN PRN Reason: Hypoglycemia w/o IV access Propofol (Diprivan) 1,000 mg in 100 mls @ 3.157 mls/hr IV TITRATE EVARISTO; 5 MCG/KG /MIN PRN Reason: Protocol Last Admin: 09/21/16 06:45 Dose: 30 mcg/kg/min, 18.942 mls/hr Cefepime HCl 1,000 mg/ Sodium (Chloride) 100 mls @ 200 mls/hr IV Q8H [facility] Last Infusion: 09/21/16 07:30 Dose: Infused Linezolid 600 mg/ Premix 300 mls @ 300 mls/hr IV Q12H [facility] Last Infusion: 09/21/16 07:30 Dose: Infused Midazolam HCl 100 mg/ Sodium (Chloride) 100 mls @ 2.1 mls/hr IV TITRATE [facility]ISTO; 0.02 MG/KG/HR PRN Reason: Protocol Last Admin: 09/21/16 02:26 Dose: 0.05 mg/kg/hr, 5.27 mls/hr Heparin Sodium/Dextrose () 25,000 units in 500 mls @ 37.966 mls/hr IV TITRATE EVARISTO; 18 UNITS/KG/HR PRN Reason: Protocol Last Admin: 09/21/16 07:31 Dose: 18.49 units/kg/hr, 39 mls/hr Insulin Human Regular (Humulin R) 0 unit SUBCUT Q6HR [facility]ISTO PRN Reason: Protocol Last Admin: 09/21/16 06:12 Dose: 8 unit Iron/Minerals/Multivitamins (Centrum Liquid) 15 ml PO DAILY [facility] Last Admin: 09/21/16 09:23 Dose: 15 ml Lisinopril (Prinivil) 10 mg PO BID [facility] Last Admin: 09/21/16 09:23 Dose: 10 mg Methylprednisolone Sodium Succinate (Solumedrol) 60 mg IV Q8H [facility] Last Admin: 09/21/16 09:24 Dose: 60 mg Pantoprazole Sodium (Protonix Inj) 40 mg IV DAILY [facility] Last Admin: 09/21/16 09:24 Dose: 40 mg Rosuvastatin Calcium (Crestor) 10 mg PO BEDTIME [facility] Last Admin: 09/20/16 20:51 Dose: 10 mg Thiamine HCl (Vitamin B1 Inj) 100 mg IM DAILY [facility] Stop: 09/22/16 09:59 Last Admin: 09/21/16 09:24 Dose: 100 mg Exam (Progress Note) - Constitutional Vitals: Period Temp Pulse Resp BP Sys/Cast Pulse Ox Last 24 Hr 96.1 F-98.0 F 78-104 12-36 95-167/53-100 96-100 Exam: General: Appears well developed, well nourished, intubated and sedated, resting comfortably in the CCU HEENT: Normocephalic, atraumatic Neck: Supple Neck, Midline Trachea, No Bruit, No JVD Cardiac: Regular rhythm, No Murmur, no gallop, no rub Lungs: Coarse breath sounds per the ventilator Neuro: The patient is intubated and sedated so this is difficult to assess Abdomen: Soft, Active Bowel Sounds, No Masses, No Pulsations/Bruits Skin: Normal color, no rash Extremities: No Clubbing, No Cyanosis, No Edema, Normal Upper Extr. Pulses Musculoskeletal: No acute abnormality noted Psychiatric: Cannot be assessed as the patient is intubated and sedated Result/EKG - Labs CBC & BMP: 09/18/16 23:52 09/21/16 03:58 Lab Results: I have reviewed the past 24 hour labs Labs: Laboratory Results - last 24 hr 09/20/16 09/20/16 09/20/16 04:37 11:06 11:33 INR PT Patient/Control Mix Circ Anticoag PTT ABG pH ABG pCO2 ABG pO2 ABG HCO3 ABG Total CO2 ABG O2 Saturation ABG Base Excess Sodium Potassium Chloride Carbon Dioxide Anion Gap BUN Creatinine GFR Calculation BUN/Creatinine Ratio Glucose POC Glucose 181 H Calculated Osmolality Calcium Total Bilirubin AST ALT Alkaline Phosphatase Total Creatine Kinase 5295 H CK-MB (CK-2) 20.6 H CK and CKMB Interp 0.4 Troponin I 0.281 H D Total Protein Albumin Globulin Albumin/Globulin Ratio Triglycerides 885 H Cholesterol 245 H LDL Cholesterol 113.0 VLDL Cholesterol 177.0 HDL Cholesterol 43 Heart Disease Risk Ratio 5.70 09/20/16 09/20/16 09/20/16 14:01 15:43 17:33 INR 1.0 PT Patient/Control Mix 10.4 Circ Anticoag PTT 27.8 ABG pH ABG pCO2 ABG pO2 ABG HCO3 ABG Total CO2 ABG O2 Saturation ABG Base Excess Sodium Potassium Chloride Carbon Dioxide Anion Gap BUN Creatinine GFR Calculation BUN/Creatinine Ratio Glucose POC Glucose Calculated Osmolality Calcium Total Bilirubin AST ALT Alkaline Phosphatase Total Creatine Kinase 4589 H 4303 H CK-MB (CK-2) 16.3 H 15.6 H CK and CKMB Interp 0.4 0.4 Troponin I 0.226 H 0.200 H Total Protein Albumin Globulin Albumin/Globulin Ratio Triglycerides Cholesterol LDL Cholesterol VLDL Cholesterol HDL Cholesterol Heart Disease Risk Ratio 09/20/16 09/20/16 09/21/16 17:52 22:24 00:00 INR PT Patient/Control Mix Circ Anticoag PTT 56.8 H D ABG pH ABG pCO2 ABG pO2 ABG HCO3 ABG Total CO2 ABG O2 Saturation ABG Base Excess Sodium Potassium Chloride Carbon Dioxide Anion Gap BUN Creatinine GFR Calculation BUN/Creatinine Ratio Glucose POC Glucose 228 H 219 H Calculated Osmolality Calcium Total Bilirubin AST ALT Alkaline Phosphatase Total Creatine Kinase CK-MB (CK-2) CK and CKMB Interp Troponin I Total Protein Albumin Globulin Albumin/Globulin Ratio Triglycerides Cholesterol LDL Cholesterol VLDL Cholesterol HDL Cholesterol Heart Disease Risk Ratio 09/21/16 09/21/16 09/21/16 02:58 03:58 03:58 INR PT Patient/Control Mix Circ Anticoag PTT 74.2 H D ABG pH 7.390 ABG pCO2 51.9 H ABG pO2 149.0 H ABG HCO3 28.9 H ABG Total CO2 27.1 H ABG O2 Saturation 98.8 ABG Base Excess 5.0 H Sodium 139 Potassium 4.5 Chloride 103 Carbon Dioxide 25 Anion Gap 15.5 H BUN 20 H Creatinine 0.80 GFR Calculation 116 BUN/Creatinine Ratio 25.00 H Glucose 264 H POC Glucose Calculated Osmolality 288.5 Calcium 9.2 Total Bilirubin 0.40 AST 78 H ALT 45 Alkaline Phosphatase 42 L Total Creatine Kinase CK-MB (CK-2) CK and CKMB Interp Troponin I Total Protein 6.3 L Albumin 3.0 L Globulin 3.3 Albumin/Globulin Ratio 0.9 L Triglycerides Cholesterol LDL Cholesterol VLDL Cholesterol HDL Cholesterol Heart Disease Risk Ratio 09/21/16 09/21/16 05:54 10:04 INR PT Patient/Control Mix Circ Anticoag PTT 80.0 H ABG pH ABG pCO2 ABG pO2 ABG HCO3 ABG Total CO2 ABG O2 Saturation ABG Base Excess Sodium Potassium Chloride Carbon Dioxide Anion Gap BUN Creatinine GFR Calculation BUN/Creatinine Ratio Glucose POC Glucose 232 H Calculated Osmolality Calcium Total Bilirubin AST ALT Alkaline Phosphatase Total Creatine Kinase CK-MB (CK-2) CK and CKMB Interp Troponin I Total Protein Albumin Globulin Albumin/Globulin Ratio Triglycerides Cholesterol LDL Cholesterol VLDL Cholesterol HDL Cholesterol Heart Disease Risk Ratio - EKG EKG results: interpreted by me
[2016-09-21] MEDS: ROSUVASTATIN 10 MG TABLET PO SCH (21:43)
[2016-09-22] MEDS: INSULIN REGULAR 100 UNIT/ML SUBCUT SCH ×4 (01:20→18:23)
[2016-09-22] MEDS: methylPREDNISolone SOD SUC 40 MG/1 ML VIAL IV SCH ×3 (01:21→17:35)
[2016-09-22] MEDS: MIDAZOLAM 100 MG in SODIUM CHLORIDE 0.9% 80 ML IV SCH (01:21)
[2016-09-22] MEDS: ALBUTEROL/IPRATROPIUM 3 ML NEB RESP TX SCH ×7 (02:16→23:15)
[2016-09-22 03:48] LABS: Allen Test Positive; Pt O2 Delivery Device Ventilator
[2016-09-22 03:50] LABS: ABG Base Excess 5.7 MMOL/L (-2.5-2.5); ABG HCO3 30.6 MMOL/L (20-26); ABG Oxygen Saturation 98.7 % (95-100); ABG PCO2 45.1 MM HG (35-48); ABG PH 7.449 (7.35-7.45); ABG PO2 130.7 MM HG (80-95)
[2016-09-22] MEDS: PROPOFOL 1,000 MG/100 ML BOTTLE IV SCH (05:08)
[2016-09-22] MEDS: LINEZOLID INJ 600 MG in PREMIX 1 EACH IV SCH ×2 (05:08→17:36)
[2016-09-22 05:20] LABS: Hematocrit 40.5 VOL% (35.7-47.0); Hemoglobin 13.9 GM/DL (12.0-16.0); Immature Granulocytes % 0.5 %; Immature Granulocytes Absolute 0.05 #; Lymphocytes # 1.6 10*3/uL (1.4-4.0); Lymphocytes % 15.2 % (21.3-54.2); Mean Corpuscular HGB Conc 34.3 GM/DL (32-36); Mean Corpuscular Hemoglobin 27 PG (27-34); Mean Corpuscular Volume 79.9 FL (87-102); Mean Platelet Volume 11.7 FL (9.6-12.0); Monocytes # 0.6 10*3/uL (0.11-0.8); Monocytes % 5.5 % (1.7-12.7); Neutrophils # 8.2 10*3/uL (1.4-7.4); Neutrophils % 78.8 % (38.7-73.9); Platelet Count 231 T/CUMM (130-400); Red Blood Count 5.07 MC/CUMM (3.8-5.5); Red Cell Distribution Width 13.1 % (9.3-17.3); White Blood Count 10.4 T/CUMM (4-12)
[2016-09-22 05:57] LABS: Albumin 2.8 G/DL (3.4-5.0); Bilirubin,Total 0.7 MG/DL (0.2-1.0); Calcium 8.3 MG/DL (8.5-10.1); Osmolality,Calculated 286.7 MOS/KG (273-304); Potassium 4.4 MMOL/L (3.5-5.1); Total Protein 6.2 G/DL (6.4-8.3)
[2016-09-22] MEDS: CEFEPIME 1,000 MG in SODIUM CHLORIDE 0.9% 100 ML IV SCH ×3 (05:58→21:37)
--- NOTE | 2016-09-22 07:11 | Pulmonology Progress Note ---
Pulmonary - PN: Subj Interval history: Patient is a 61-year-old the ventilator that came in with acute respiratory failure. She has been reasonably stable on the ventilator. She is a heavy smoker and may have some COPD. She has a history of alcohol abuse and may have a mild cardiomyopathy. She has been treated for mild heart failure and pneumonia. She has been fairly stable on the ventilator. Her oxygenation is good and her chest x-ray is clear. She has been doing CPAP fairly well. She should be able to come off the ventilator soon Exam (Progress Note) - Constitutional Vitals: Period Temp Pulse Resp BP Sys/Cast Pulse Ox Last 24 Hr 97.4 F-98.7 F 72-99 12-36 93-180/51-110 96-100 Exam: General appearance: normal weight, no acute distress (The patient is sedated on the ventilator at present. She responds when off sedation.) - Head Head exam: Present: normal inspection, normocephalic - Eye Eye exam: Present: EOMI. Absent: scleral icterus Pupils: Present: KARON - ENT ENT exam: Present: other (ET tube is in good position.) - Neck Neck exam: Absent: lymphadenopathy, meningismus, thyromegaly - Respiratory Respiratory exam: Present: Her lungs have good breath sounds bilaterally and are fairly clear now. - Cardiovascular Cardiovascular exam: Present: regular rate and rhythm. Absent: gallop, JVD, systolic murmur - GI/Abdominal GI/Abdominal exam: Present: normal bowel sounds, soft. Absent: organomegaly, tenderness - Extremities Exam Extremities exam: Absent: calf tenderness, edema - Neurological Exam Neurological exam: Present: altered (Patient is sedated now but will respond when off sedation. She does get agitated at times.) - Psychiatric Psychiatric exam: Present: She is reasonably comfortable now. - Skin Skin exam: Present: warm, dry Results - Labs CBC & BMP: 09/22/16 04:09 09/22/16 04:09 Labs: Her PO2 is 130 with a PCO2 of 45 and a pH of 7.44 - Diagnostic Findings Procedure: Chest x-ray: image reviewed by me, report reviewed by me (Chest x- ray is clear.) Assessment and Plan (1) COPD (chronic obstructive pulmonary disease) Status: Acute Assessment and plan: The patient is a heavy smoker and looks like she has some CO2 retention. Her lungs sound better now and her chest x-ray is clear. Her ABGs are stable now. She looks like she can come off the ventilator soon. Current Visit: Yes (2) Congestive heart failure Status: Acute Assessment and plan: Her ejection fraction around 40% and her x-ray suggested some mild heart failure. This is improved. Current Visit: Yes Qualifiers: Congestive heart failure type: unspecified congestive heart failure type (3) Respiratory failure Status: Acute Assessment and plan: The patient came in with respiratory failure but is stable on the ventilator at present. We will continue with weaning trials. Her chest x-ray is clear and her oxygenation is better. Current Visit: Yes (4) Accelerated hypertension Status: Acute Assessment and plan: The patient's blood pressure is under good control at present. Current Visit: Yes
--- NOTE | 2016-09-22 08:34 | EKG Report ---
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
[2016-09-22] MEDS: HEPARIN DRIP 25,000 UNITS/500 ML PREMIX IV SCH ×3 (09:00→23:26)
[2016-09-22] MEDS: LISINOPRIL 10 MG TABLET PO SCH ×2 (09:02→20:23)
[2016-09-22] MEDS: MULTIVITAMIN LIQUID (CENTRUM) 60 ML BOTTLE PO SCH (09:02)
[2016-09-22] MEDS: ASPIRIN CHEW 81 MG TABLET PO SCH (09:02)
[2016-09-22] MEDS: FUROSEMIDE 40 MG/4 ML VIAL IV SCH (09:05)
[2016-09-22] MEDS: PANTOPRAZOLE 40 MG VIAL IV SCH (09:07)
[2016-09-22] MEDS: THIAMINE 200 MG/2 ML VIAL IM SCH (09:09)
--- NOTE | 2016-09-22 09:33 | Hospitalist Progress Note ---
Assessment and Plan - Time spent with patient Time spent with patient: Greater than 30 minutes (1) Respiratory failure Status: Acute Assessment and plan: Acute hypoxic and hypercapnic resp failure. Multifactorial to include suspected underlying COPD with exacerbation, acute PE and ?acute CHF. Resolving. Spon breathing trial today with potential extubation later today. Current Visit: Yes (2) Congestive heart failure Status: Acute Assessment and plan: Echo with systolic dysfunction, est LVEF 40%. Cardiology following Current Visit: Yes Qualifiers: Congestive heart failure type: systolic Congestive heart failure chronicity : acute on chronic Qualified Code(s): I50.23 - Acute on chronic systolic ( congestive) heart failure (3) COPD (chronic obstructive pulmonary disease) Status: Acute Current Visit: Yes (4) Acute encephalopathy Status: Acute Assessment and plan: Re-eval once extubated. Consider repeat CT vs MRI for any residual deficit Current Visit: Yes Hospitalist: Subjective Interval history: No new prob. Tolerating spon breathing trial with possible extubation later today. Following commands and moving all ext Exam - Constitutional Vitals: Period Temp Pulse Resp BP Sys/Cast Pulse Ox Last 24 Hr 97.5 F-98.7 F 72-99 12-36 93-180/51-110 97-100 General appearance: no acute distress, other (Awakens to voice, on low dose sedation) - Head Head exam: Present: normocephalic, atraumatic - Eye Eye exam: Present: EOMI. Absent: conjunctival injection, scleral icterus Pupils: Present: KARON - ENT ENT exam: Present: other (ETT and NGT in place) - Neck Neck exam: Present: normal inspection. Absent: lymphadenopathy - Respiratory Respiratory exam: Present: clear to auscultation bilaterally. Absent: rales, rhonchi, wheezes - Cardiovascular Cardiovascular exam: Present: regular rate and rhythm. Absent: gallop, rubs - GI/Abdominal GI/Abdominal exam: Present: normal bowel sounds. Absent: distended, guarding, tenderness - Extremities Exam Extremities exam: Present: full ROM, edema - Neurological Exam Neurological exam: Present: alert, other (limited exam) - Psychiatric Psychiatric exam: Present: other (UTO) - Skin Skin exam: Present: normal color, warm, dry Results - Labs CBC & BMP: 09/22/16 04:09 09/22/16 04:09
[2016-09-22 09:35] LABS: ABG Base Excess 5.8 MMOL/L (-2.5-2.5); ABG HCO3 29.7 MMOL/L (20-26); ABG PCO2 51.7 MM HG (35-48); ABG PH 7.403 (7.35-7.45); ABG TCO2 27.4 MMOL/L (23-27); Allen Test Positive; Pt O2 Delivery Device Ventilator
--- NOTE | 2016-09-22 10:14 | Cardiology Progress Note ---
Assessment and Plan (1) Pulmonary embolus Status: Acute Assessment and plan: This may be the reason for the patient's respiratory failure. She has been started on anticoagulation. Current Visit: Yes (2) Abnormal EKG Status: Acute Assessment and plan: The patient has a markedly abnormal EKG which is a new finding. The diffuse nature of her T-wave inversion makes me think of a stroke. The marked elevation of CPK with a trivial change in troponin also makes me think of a stroke. Initial CT of the head was benign, but CT angiogram did show pulmonary embolus. She has been started on anticoagulation. I am still strongly suspicious that she had a stroke based on her EKG and cardiac enzyme profile. I think we should repeat her CT in a day or 2 to reevaluate for stroke. At this point she is on proper anticoagulation for this and her pulmonary embolus. For now, I do not think I would pursue cardiac catheterization. I will follow along with you. Current Visit: Yes (3) Accelerated hypertension Status: Acute Assessment and plan: This is now well controlled Current Visit: Yes (4) Respiratory failure Status: Resolved Assessment and plan: She has been successfully extubated. Current Visit: Yes Cardiology - PN: Subj Interval history: The patient remains in the CCU and was just extubated. She is still a bit drowsy but is able to answer questions appropriately. She is moving all of her limbs. She denies any chest pain or other cardiac symptoms. Her EKG remains unchanged with deep symmetric diffuse T-wave inversions that are most consistent with intracranial process/stroke. Her very high CPK elevation with trivial troponin changes also suggestive of stroke (or perhaps pulmonary infarct related to her PE). Initial CT scan did not reveal a stroke, but I think we need to repeat this in a day or 2 to see if there is any change. Her CT angiogram did show pulmonary embolus and she has been started on anticoagulation. This may have been the source of the patient's respiratory failure. There have been no new cardiac issues overnight. Current Medications Albuterol/Ipratropium (Duoneb) 3 ml RESP TX RT Q4H PRN PRN Reason: Shortness of Breath/Wheezing Albuterol/Ipratropium (Duoneb) 3 ml RESP TX RT Q6H [facility] Last Admin: 09/22/16 08:08 Dose: 3 ml Albuterol/Ipratropium (Duoneb) 3 ml RESP TX Q4HR [facility] Aspirin () 81 mg PO DAILY [facility] Last Admin: 09/22/16 09:02 Dose: 81 mg Dextrose/Water (D50) 25 gm IV PRN PRN PRN Reason: Hypoglycemia with IV access Furosemide (Lasix Inj) 40 mg IV DAILY [facility] Last Admin: 09/22/16 09:05 Dose: 40 mg Glucagon () 1 mg IM PRN PRN PRN Reason: Hypoglycemia w/o IV access Propofol (Diprivan) 1,000 mg in 100 mls @ 3.157 mls/hr IV TITRATE [facility]; 5 MCG/KG /MIN PRN Reason: Protocol Last Titration: 09/22/16 08:00 Dose: 0 mcg/kg/min, 0 mls/hr Cefepime HCl 1,000 mg/ Sodium (Chloride) 100 mls @ 200 mls/hr IV Q8H [facility] Last Infusion: 09/22/16 06:28 Dose: Infused Linezolid 600 mg/ Premix 300 mls @ 300 mls/hr IV Q12H [facility] Last Infusion: 09/22/16 06:08 Dose: Infused Midazolam HCl 100 mg/ Sodium (Chloride) 100 mls @ 2.1 mls/hr IV TITRATE [facility]; 0.02 MG/KG/HR PRN Reason: Protocol Last Titration: 09/22/16 08:00 Dose: 0 mg/kg/hr, 0 mls/hr Heparin Sodium/Dextrose () 25,000 units in 500 mls @ 37.966 mls/hr IV TITRATE [facility]; 18 UNITS/KG/HR PRN Reason: Protocol Last Admin: 09/22/16 09:00 Dose: 18.01 units/kg/hr, 38 mls/hr Insulin Human Regular (Humulin R) 0 unit SUBCUT Q6HR [facility] PRN Reason: Protocol Last Admin: 09/22/16 05:57 Dose: 10 unit Iron/Minerals/Multivitamins (Centrum Liquid) 15 ml PO DAILY [facility] Last Admin: 09/22/16 09:02 Dose: 15 ml Lisinopril (Prinivil) 10 mg PO BID [facility] Last Admin: 09/22/16 09:02 Dose: 10 mg Methylprednisolone Sodium Succinate (Solumedrol) 60 mg IV Q8H [facility] Last Admin: 09/22/16 09:11 Dose: 60 mg Pantoprazole Sodium (Protonix Inj) 40 mg IV DAILY [facility] Last Admin: 09/22/16 09:07 Dose: 40 mg Rosuvastatin Calcium (Crestor) 10 mg PO BEDTIME [facility] Last Admin: 09/21/16 21:43 Dose: 10 mg Exam (Progress Note) - Constitutional Vitals: Period Temp Pulse Resp BP Sys/Cast Pulse Ox Last 24 Hr 97.5 F-98.7 F 72-99 12-36 93-180/51-110 97-100 Exam: General: Appears well developed, well nourished, status post intubation, mildly confused/drowsy but otherwise in no acute distress HEENT: Normocephalic, atraumatic Neck: Supple Neck, Midline Trachea, No Bruit, No JVD Cardiac: Regular rhythm, No Murmur, no gallop, no rub Lungs: Coarse breath sounds without overt rales or wheezes Neuro: Grossly afocal though she is still a bit drowsy Abdomen: Soft, Active Bowel Sounds, No Masses, No Pulsations/Bruits Skin: Normal color, no rash Extremities: No Clubbing, No Cyanosis, No Edema, Normal Upper Extr. Pulses Musculoskeletal: No acute abnormality noted Psychiatric: She does not appear to be anxious or depressed Result/EKG - Labs CBC & BMP: 09/22/16 04:09 09/22/16 04:09 Lab Results: I have reviewed the past 24 hour labs Labs: Laboratory Results - last 24 hr 09/21/16 09/21/16 09/21/16 10:04 11:31 15:55 WBC RBC Hgb Hct MCV MCH MCHC RDW Plt Count MPV Neut % (Auto) Lymph % (Auto) [place] % (Auto) Eos % (Auto) Baso % (Auto) Neut # (Auto) Lymph # (Auto) [place] # (Auto) Eos # (Auto) Baso # (Auto) Immature Gran % Nucleated RBC % Immature Gran # Nucleated RBCs # Circ Anticoag PTT 80.0 H 67.2 H ABG pH ABG pCO2 ABG pO2 ABG HCO3 ABG Total CO2 ABG O2 Saturation ABG Base Excess FiO2 Sodium Potassium Chloride Carbon Dioxide Anion Gap BUN Creatinine GFR Calculation BUN/Creatinine Ratio Glucose POC Glucose 207 H Calculated Osmolality Calcium Total Bilirubin AST ALT Alkaline Phosphatase Total Protein Albumin Globulin Albumin/Globulin Ratio 09/21/16 09/21/16 09/22/16 17:59 21:57 00:40 WBC RBC Hgb Hct MCV MCH MCHC RDW Plt Count MPV Neut % (Auto) Lymph % (Auto) [place] % (Auto) Eos % (Auto) Baso % (Auto) Neut # (Auto) Lymph # (Auto) [place] # (Auto) Eos # (Auto) Baso # (Auto) Immature Gran % Nucleated RBC % Immature Gran # Nucleated RBCs # Circ Anticoag PTT 92.3 H D ABG pH ABG pCO2 ABG pO2 ABG HCO3 ABG Total CO2 ABG O2 Saturation ABG Base Excess FiO2 Sodium Potassium Chloride Carbon Dioxide Anion Gap BUN Creatinine GFR Calculation BUN/Creatinine Ratio Glucose POC Glucose 273 H 220 H Calculated Osmolality Calcium Total Bilirubin AST ALT Alkaline Phosphatase Total Protein Albumin Globulin Albumin/Globulin Ratio 09/22/16 09/22/16 09/22/16 03:36 04:09 04:09 WBC RBC Hgb Hct MCV MCH MCHC RDW Plt Count MPV Neut % (Auto) Lymph % (Auto) [place] % (Auto) Eos % (Auto) Baso % (Auto) Neut # (Auto) Lymph # (Auto) [place] # (Auto) Eos # (Auto) Baso # (Auto) Immature Gran % Nucleated RBC % Immature Gran # Nucleated RBCs # Circ Anticoag PTT 60.9 H D ABG pH 7.449 ABG pCO2 45.1 ABG pO2 130.7 H ABG HCO3 30.6 H ABG Total CO2 32.0 H ABG O2 Saturation 98.7 ABG Base Excess 5.7 H FiO2 40.00 Sodium 138 Potassium 4.4 Chloride 99 Carbon Dioxide 29 Anion Gap 14.4 BUN 26 H Creatinine 0.60 GFR Calculation 143 BUN/Creatinine Ratio 43.00 H Glucose 233 H POC Glucose Calculated Osmolality 286.7 Calcium 8.3 L Total Bilirubin 0.70 AST 57 H ALT 47 Alkaline Phosphatase 40 L Total Protein 6.2 L Albumin 2.8 L Globulin 3.4 Albumin/Globulin Ratio 0.8 L 09/22/16 09/22/16 09/22/16 04:09 05:55 09:28 WBC 10.4 D RBC 5.07 Hgb 13.9 Hct 40.5 MCV 79.9 L MCH 27 MCHC 34.3 RDW 13.1 Plt Count 231 MPV 11.7 Neut % (Auto) 78.8 H Lymph % (Auto) 15.2 L [place] % (Auto) 5.5 Eos % (Auto) 0.0 Baso % (Auto) 0.0 Neut # (Auto) 8.2 H Lymph # (Auto) 1.6 [place] # (Auto) 0.6 Eos # (Auto) 0.0 Baso # (Auto) 0.0 Immature Gran % 0.5 Nucleated RBC % 0.0 Immature Gran # 0.05 Nucleated RBCs # 0.00 Circ Anticoag PTT ABG pH 7.403 ABG pCO2 51.7 H ABG pO2 116.0 H ABG HCO3 29.7 H ABG Total CO2 27.4 H ABG O2 Saturation 98.0 ABG Base Excess 5.8 H FiO2 40.00 Sodium Potassium Chloride Carbon Dioxide Anion Gap BUN Creatinine GFR Calculation BUN/Creatinine Ratio Glucose POC Glucose 252 H Calculated Osmolality Calcium Total Bilirubin AST ALT Alkaline Phosphatase Total Protein Albumin Globulin Albumin/Globulin Ratio - EKG EKG results: interpreted by me
--- NOTE | 2016-09-22 10:14 | XRay Report ---
Referring Physician: Cooper Conroy Exam: XR chest 1V portable Date: September 22, 2016 at 3:31 AM Reason: On ventilator Comparison: Chest one view portable September 21, 2016 Findings: An endotracheal tube and feeding tube are again in place. The cardiac silhouette is upper normal in size. There is minimal atelectasis at the lung bases and mild left pleural fluid. No pneumothorax is identified. No acute osseous process is seen. Impression: Minimal atelectasis at the lung bases and mild left pleural fluid. PROCEDURE INTERPRETED AT [facility] DEPARTMENT OF RADIOLOGY Final Report Signed by: Dr. Jm Parra
[2016-09-22] MEDS: ROSUVASTATIN 10 MG TABLET PO SCH (20:23)
[2016-09-23] MEDS: INSULIN REGULAR 100 UNIT/ML SUBCUT SCH ×2 (00:41→06:14)
[2016-09-23] MEDS: methylPREDNISolone SOD SUC 40 MG/1 ML VIAL IV SCH ×3 (00:42→17:56)
[2016-09-23] MEDS: ALBUTEROL/IPRATROPIUM 3 ML NEB RESP TX SCH ×5 (02:32→19:19)
[2016-09-23 03:28] LABS: ABG Base Excess 6.5 MMOL/L (-2.5-2.5); ABG HCO3 30.2 MMOL/L (20-26); ABG Oxygen Saturation 93.7 % (95-100); ABG PCO2 46.1 MM HG (35-48); ABG PH 7.445 (7.35-7.45); ABG PO2 72.7 MM HG (80-95); ABG TCO2 27.3 MMOL/L (23-27); Allen Test Positive
[2016-09-23 05:06] LABS: Basophils % 0.1 % (0.0-0.8); Hemoglobin 13.6 GM/DL (12.0-16.0); Immature Granulocytes % 0.7 %; Immature Granulocytes Absolute 0.07 #; Lymphocytes # 1.9 10*3/uL (1.4-4.0); Lymphocytes % 18.5 % (21.3-54.2); Mean Corpuscular HGB Conc 34.9 GM/DL (32-36); Mean Corpuscular Hemoglobin 28 PG (27-34); Mean Corpuscular Volume 78.8 FL (87-102); Mean Platelet Volume 10.7 FL (9.6-12.0); Monocytes # 0.7 10*3/uL (0.11-0.8); Monocytes % 6.7 % (1.7-12.7); Neutrophils # 7.5 10*3/uL (1.4-7.4); Platelet Count 231 T/CUMM (130-400); Red Blood Count 4.95 MC/CUMM (3.8-5.5); Red Cell Distribution Width 12.7 % (9.3-17.3); White Blood Count 10.1 T/CUMM (4-12)
[2016-09-23] MEDS: LINEZOLID INJ 600 MG in PREMIX 1 EACH IV SCH (05:16)
[2016-09-23] MEDS: CEFEPIME 1,000 MG in SODIUM CHLORIDE 0.9% 100 ML IV SCH ×3 (06:14→21:53)
--- NOTE | 2016-09-23 07:17 | CT Report ---
CT head/brain wo con Indication: Follow-up to rule out ischemic stroke Comparison: CT brain dated September 20, 2016 Technique: Multiple axial tomographic images of the brain were obtained without the use of intravenous contrast. Findings: Midline structures are nondisplaced. There is no acute intracranial hemorrhage or evidence of hydrocephalus. Mild periventricular and subcortical hypoattenuation noted which is nonspecific but consistent with chronic microvascular ischemic change. Paranasal sinuses demonstrate patchy opacification of the ethmoid air cells. Mastoid air cells are clear. IMPRESSION: No acute intracranial abnormality demonstrated. PROCEDURE INTERPRETED AT [facility] DEPARTMENT OF RADIOLOGY Final Report Signed by: Dr Jerman Kelsey
--- NOTE | 2016-09-23 08:22 | XRay Report ---
Portable chest Date: 09/23/2016 Clinical history: Ventilator management Comparison: 09/22/2016 Technique: Portable AP sitting chest Findings: The heart is minimally enlarged with interval removal of the endotracheal tube and nasogastric tube. Residual atelectasis at the lung bases with smaller left pleural effusion. Stable mediastinum and osseous structures. Impression: Interval removal of the endotracheal tube and nasogastric tube. Residual atelectasis at the lung bases with smaller left pleural effusion. PROCEDURE INTERPRETED AT [facility] DEPARTMENT OF RADIOLOGY Final Report Signed by: Dr. Fauzia Dudley
--- NOTE | 2016-09-23 09:04 | Hospitalist Progress Note ---
Assessment and Plan (1) Pulmonary embolus Status: Acute Assessment and plan: Chest CT shows a filling defect in the segmental pulmonary artery within the left lower lobe. Dr. Conroy will review the films and determine whether we still need to heparinize her. She is developing hematuria Current Visit: Yes (2) Hematuria Status: Acute Assessment and plan: PTT running a little high heparin is on hold Current Visit: Yes (3) Congestive heart failure Status: Acute Assessment and plan: Continue lisinopril once a day. Unable to tolerate Coreg at this time. Continue Lasix 40 mg IV daily Current Visit: Yes Qualifiers: Congestive heart failure type: systolic Congestive heart failure chronicity : acute on chronic Qualified Code(s): I50.23 - Acute on chronic systolic ( congestive) heart failure (4) Respiratory failure Status: Resolved Assessment and plan: Patient extubated yesterday. Patient looks good today and sounds clear. We will stop Zyvox today and if looks good tomorrow we will stop cefepime. Will move up to the floor Current Visit: Yes (5) Abnormal EKG Status: Acute Assessment and plan: Cardiology is concerned about possible stroke. Does have PE. We will get an MRI of her brain today. Current Visit: Yes (6) COPD (chronic obstructive pulmonary disease) Status: Acute Assessment and plan: Continue duo nebs, steroids and cefepime, stop zyvox Current Visit: Yes (7) Acute encephalopathy Status: Acute Assessment and plan: Repeat head CT is negative. Patient following commands but is still confused. Cardiology is still concerned that patient may have had a stroke. We will do an MRI of her brain today. I will also check an ammonia level on her. Current Visit: Yes (8) Hyperglycemia Status: Acute Assessment and plan: Patient has elevated blood sugars. We will start her on a diabetic diet and check a hemoglobin A1c. Current Visit: Yes (9) Hyperlipidemia Status: Acute Assessment and plan: Triglycerides 885, cholesterol 245, will start Lipitor at a low dose now that her liver enzymes have improved Current Visit: Yes (10) Alcoholic Status: Acute Assessment and plan: Liver enzymes have improved. No evidence of DTs. Will check an ammonia level. Current Visit: Yes Hospitalist: Subjective Interval history: Patient was extubated on September 22, 2016. Patient is doing well. Patient is alert and oriented 2. Discussed case with Dr. Conroy and he is okay with her moving out of the CCU. Only concern is the PE. She is currently having a lot of hematuria on just heparin. Dr. Conroy will reevaluate the pulmonary embolus to see if she really needs anticoagulation. Patient's blood sugars are running quite high. Will do a hemoglobin A1c and start her on a diabetic diet. Exam - Constitutional Vitals: Period Temp Pulse Resp BP Sys/Cast Pulse Ox Last 24 Hr 97.8 F-98.5 F 69-109 14-26 90-177/50-94 90-100 Exam: Heart Rate-[RRR] Lungs-[CTAB] GI-[+bs soft, NT] Ext-[no edema] Neuro [Motor 5/5], [alert and oriented times 2] psych [normal mood and flat affect] General [no acute distress] Results - Labs CBC & BMP: 09/23/16 04:56 09/22/16 04:09 Lab Results: I have reviewed the past 24 hour labs Labs: Sputum culture negative no growth, blood culture negative no growth - Diagnostic Findings Procedure: Chest x-ray: report reviewed by me (Atelectasis with small left pleural effusion), CT: report reviewed by me (Head CT nothing acute)
--- NOTE | 2016-09-23 09:29 | Pulmonology Progress Note ---
Pulmonary - PN: Subj Interval history: Is a 61-year-old black female whom I saw in pulmonary consultation on 09/19/2016. I was asked to manage her pulmonary status and her mechanical ventilation. She came to the emergency room short of breath and required intubation mechanical ventilation. She had hypercarbia and hypoxemia. At this point we know very little about her except her daughter in [place] said that she is a heavy smoker and a heavy drinker. My impressions were 1. Acute respiratory failure for oxygen and carbon dioxide. Etiology uncertain. Consider infection. Note that white count is low normal without left shift. Consider other causes such as pulmonary emboli. From a chest x- ray standpoint I did not see any evidence of congestive heart failure although the patient has cardiomegaly. 2. Intubation and mechanical ventilation secondary to #1 and #3 3. Underlying COPD 4. Tobacco abuse 5. Alcohol abuse 6. Presence of other conditions may arise as more history is obtained from either the patient and her family. Family is not presently available. 09/20/2016. Weaning protocol was ordered to begin yesterday but for reasons I am not aware of this was not begun. I have asked that it be begun today. Patient is also supposed to be on physical therapy protocol. Her chest x-ray shows cardiomegaly there is some increased markings in the right middle lung and right lower lung and left lower lung. These probably represent a low-grade infection. CBC was not ordered for the day of admit white count was not impressive. Cold agglutinins Legionella titers are pending sputum for Gram stain cultures and sensitivities have not revealed anything. ABGs on mechanical ventilation FiO2 50% show a pH 7.41, PCO2 of 45, PO2 of 110 and a bicarb of 27.5. Electrolytes are normal. Creatinine is 0.8 with a BUN of 13 natruretic peptide is elevated at 452. Total protein is 6.7 and albumin is low at 3.1 09/23/2016. Patient was extubated on 09/22/2016. She is done well since then.ABGs on FiO2 28% showed pH 7.44, PCO2 46.1, PO2 of 72.7 and a bicarb of 30.2. Doppler venograms done 09/19/2016 showed no evidence of deep venous thrombophlebitis. CT pulmonary arteriograms there are 2 small defects in the segmental pulmonary arteries in the left lower lung. These could be small blood clots but I think there are incidental rather than a result of deep venous thrombophlebitis. Since the patient has hematuria I think it may be the safest thing to stop her heparin. We can still use deep venous thrombophlebitis prevention protocol. CBC is stable. Glucoses are under control. Thyroid function tests are normal. Patient's awake and alert and I am agreeable for her going to the floor Doppler venograms of the lower extremities. 09/19/2016. No deep venous thrombophlebitis Echocardiogram. 09/19/2016. Ejection fraction of 40%. Trace of mitral regurgitation Physical exam. Vital signs. See below Neurological. Arousable. Somewhat sedated. Cranial nerves appear to be intact the patient appears to move all 4 extremities with purpose Face. Symmetrical. Lips and tongue appear to be normal Neck. Symmetrical. No meningismus. Lymphatics. No submandibular cervical supraclavicular adenopathy. No epitrochlear adenopathy. Chest. Coarse loose large airway congestion. Heart. Slightly lateral PMI Abdomen. Positive bowel sounds Extremities. Nothing to suggest deep venous thrombophlebitis The remainder the physical exam is noncontributory Plan. 1. 09/19/2016. Ventilator parameters have been adjusted and weaning protocol has been started. 09/20/2016 -Ditto 2. 09/19/2016. Physical therapy protocol while on ventilator 3. Proton pump inhibitor protocol 4. Deep venous thrombophlebitis prevention protocol 5. Agree with antibiotics 7. 09/19/2016 I have ordered x-rays ABGs and lab for today in the next several days. 8. Cold agglutinins 9. Legionella titer 10. Sputum for Gram stain culture and sensitivity 11. 09/20/2016. This patient should be weaned and will. Echocardiogram shows ejection fraction of 40% and today her BNP is slightly elevated so will have to watch her closely for volume overload. I am not quite sure why she ended up in respiratory failure requiring intubation mechanical ventilation. She definitely has underlying COPD and she may have had an acute pneumonia. 12. 09/23/2016. See today's note above. Stop heparin. Exam (Progress Note) - Constitutional Vitals: Period Temp Pulse Resp BP Sys/Cast Pulse Ox Last 24 Hr 97.8 F-98.5 F 69-109 14-26 90-177/50-94 90-100 Results - Labs CBC & BMP: 09/23/16 04:56 09/22/16 04:09
--- NOTE | 2016-09-23 10:57 | Cardiology Progress Note ---
Waqas Perez April, RN, am scribing for, and in the presence of, Chip Cano MD 10:53. Assessment and Plan (1) Abnormal EKG Status: Acute Assessment and plan: ECG with sinus rhythm with T-wave abnormality that is diffuse and may be represent ischemia versus other. Echocardiogram was limited. Repeating this after the patient is hasn't time recuperate prior to discharge to be appropriate or even repeating as an outpatient. Current Visit: Yes (2) Pulmonary embolus Status: Acute Assessment and plan: Apparently pulmonary does not think these are significant are just incidental findings. Current Visit: Yes (3) Respiratory failure Status: Resolved Assessment and plan: This is been followed up on by pulmonary medicine. Current Visit: Yes (4) Elevated CPK Status: Acute Assessment and plan: The etiology of this is unclear but is not cardiac. Current Visit: Yes Cardiology - PN: Subj Interval history: Trim Line Worker: Dr. Christianson (new) Ms. Cano has no history of cardiac disease. She was admitted September 19, 2016 was complaints of shortness of breath/respiratory failure and required intubation. At the time of admission her BNP was normal, she denied chest pain and her initial EKG did not show any acute ST-T abnormalities. Cardiology was consulted on September 20 because of an EKG that showed deep symmetric T-wave inversions. Her troponin was 0.281 and her CK was 5295. Her troponin remained flat. Because of this and the diffuse nature of her T-wave inversion, Dr. Christianson felt this was probably a straight rather than a cardiac issue. However the patient was sedated so he was unable to get a neurologic evaluation. CT of the head did not show any hemorrhage or evidence of a stroke. CT of the chest did show evidence of a small pulmonary embolus. It was decided that she should be anticoagulated and heparin infusion was started. Today Ms. Cano is seen resting in bed in no acute distress. She has been extubated. She denies any chest pain, dizziness, or palpitations. She reports her breathing is better. Oxygen is in use via nasal cannula, O2 sat 98%. shelter monitor currently is sinus rhythm with heart rate in the 70s. Current blood pressure 104/50. She is able to move all her extremities. She still on heparin infusion. She continues her evaluation. MRI of the head apparently is planned today. We will continue to monitor. Exam (Progress Note) - Constitutional Vitals: Period Temp Pulse Resp BP Sys/Cast Pulse Ox Last 24 Hr 97.8 F-98.5 F 69-109 14-27 90-177/50-94 90-100 General appearance: no acute distress, morbidly obese - Head Head exam: Absent: abrasion, hematoma - Eye Eye exam: Absent: periorbital swelling, laceration to eyelids - Respiratory Respiratory exam: Present: other (Coarse breath sounds, oxygen in use via nasal cannula). Absent: accessory muscle use, chest wall tenderness - Cardiovascular Cardiovascular exam: Present: regular rate and rhythm. Absent: diastolic murmur , systolic murmur - GI/Abdominal GI/Abdominal exam: Present: normal bowel sounds, soft. Absent: distended, tenderness - Extremities Exam Extremities exam: Absent: edema - Neurological Exam Neurological exam: Present: alert - Psychiatric Psychiatric exam: Present: flat affect - Skin Skin exam: Present: warm, dry Result/EKG - Labs CBC & BMP: 09/23/16 04:56 09/22/16 04:09 Lab Results: I have reviewed the past 24 hour labs Labs: Laboratory Results - last 24 hr 09/22/16 09/22/16 09/22/16 09:28 10:15 11:35 WBC RBC Hgb Hct MCV MCH MCHC RDW Plt Count MPV Neut % (Auto) Lymph % (Auto) [place] % (Auto) Eos % (Auto) Baso % (Auto) Neut # (Auto) Lymph # (Auto) [place] # (Auto) Eos # (Auto) Baso # (Auto) Immature Gran % Nucleated RBC % Immature Gran # Nucleated RBCs # Circ Anticoag PTT 63.0 H ABG pH 7.403 ABG pCO2 51.7 H ABG pO2 116.0 H ABG HCO3 29.7 H ABG Total CO2 27.4 H ABG O2 Saturation 98.0 ABG Base Excess 5.8 H FiO2 40.00 POC Glucose 172 H 09/22/16 09/22/16 09/22/16 16:12 17:51 22:01 WBC RBC Hgb Hct MCV MCH MCHC RDW Plt Count MPV Neut % (Auto) Lymph % (Auto) [place] % (Auto) Eos % (Auto) Baso % (Auto) Neut # (Auto) Lymph # (Auto) [place] # (Auto) Eos # (Auto) Baso # (Auto) Immature Gran % Nucleated RBC % Immature Gran # Nucleated RBCs # Circ Anticoag PTT 76.7 H D 98.9 H D ABG pH ABG pCO2 ABG pO2 ABG HCO3 ABG Total CO2 ABG O2 Saturation ABG Base Excess FiO2 POC Glucose 333 H 09/23/16 09/23/16 09/23/16 00:34 03:15 04:56 WBC 10.1 RBC 4.95 Hgb 13.6 Hct 39.0 MCV 78.8 L MCH 28 MCHC 34.9 RDW 12.7 Plt Count 231 MPV 10.7 Neut % (Auto) 74.0 H Lymph % (Auto) 18.5 L [place] % (Auto) 6.7 Eos % (Auto) 0.0 Baso % (Auto) 0.1 Neut # (Auto) 7.5 H Lymph # (Auto) 1.9 [place] # (Auto) 0.7 Eos # (Auto) 0.0 Baso # (Auto) 0.0 Immature Gran % 0.7 Nucleated RBC % 0.0 Immature Gran # 0.07 Nucleated RBCs # 0.00 Circ Anticoag PTT ABG pH 7.445 ABG pCO2 46.1 ABG pO2 72.7 L ABG HCO3 30.2 H ABG Total CO2 27.3 H ABG O2 Saturation 93.7 L ABG Base Excess 6.5 H FiO2 28.00 POC Glucose 210 H 09/23/16 05:54 WBC RBC Hgb Hct MCV MCH MCHC RDW Plt Count MPV Neut % (Auto) Lymph % (Auto) [place] % (Auto) Eos % (Auto) Baso % (Auto) Neut # (Auto) Lymph # (Auto) [place] # (Auto) Eos # (Auto) Baso # (Auto) Immature Gran % Nucleated RBC % Immature Gran # Nucleated RBCs # Circ Anticoag PTT ABG pH ABG pCO2 ABG pO2 ABG HCO3 ABG Total CO2 ABG O2 Saturation ABG Base Excess FiO2 POC Glucose 211 H - Impressions Impressions: Telemetry was sinus rhythm. - EKG EKG results: interpreted by me EKG shows: sinus rhythm Jerome Perez John Timothy, MD, personally performed the services described in this documentation, ascribed by Evelin Alan RN in my presence, and it is both accurate and complete .
[2016-09-23] MEDS: MULTIVITAMIN LIQUID (CENTRUM) 60 ML BOTTLE PO SCH (11:28)
[2016-09-23] MEDS: PANTOPRAZOLE 40 MG VIAL IV SCH (11:28)
[2016-09-23] MEDS: FUROSEMIDE 40 MG/4 ML VIAL IV SCH (11:28)
[2016-09-23] MEDS: ASPIRIN CHEW 81 MG TABLET PO SCH (11:28)
[2016-09-23] MEDS: INSULIN LISPRO 100 UNIT/ML SUBCUT SCH ×3 (11:28→21:53)
[2016-09-23] MEDS: LISINOPRIL 10 MG TABLET PO SCH (11:29)
--- NOTE | 2016-09-23 14:55 | Magnetic Resonance Report ---
Exam: MR head/brain wo con Date: 09/23/2016 9:01 AM Comparison: CT brain 09/23/2016 Indication: Alteration of consciousness, recent intubation Technique:[Multiple acquisitions were obtained including sagittal T1, coronal T2, and axial ADC, diffusion, FLAIR, T2, GRE, and T1 scans without contrast only. Scans were obtained on an open 1.2 Missy magnet.] Findings: The ventricles remain normal in size with no midline displacement. The pituitary has a normal appearance and the cerebellar tonsils are normal in their location. No acute infarction is identified on the diffusion scans. No evidence of hemorrhage, mass, or extracerebral collection. Minimal scattered FLAIR/T2 hyperintensities are noted. Mucosal thickening/fluid in the paranasal sinuses, especially the ethmoid air cells and the left sphenoid sinus. No acute findings in the orbits or tolowa dee-ni' of Chavez. Fluid in the mastoid air cells bilaterally. Impression: No acute infarction is identified. Minimal atrophy and microvascular disease. Sinusitis. Nonspecific fluid in the mastoid air cells. PROCEDURE INTERPRETED AT [facility] DEPARTMENT OF RADIOLOGY Final Report Signed by: Dr. Fauzia Dudley
[2016-09-23] MEDS: ROSUVASTATIN 10 MG TABLET PO SCH (20:52)
[2016-09-24] MEDS: ALBUTEROL/IPRATROPIUM 3 ML NEB RESP TX SCH ×7 (00:34→23:20)
[2016-09-24] MEDS: methylPREDNISolone SOD SUC 40 MG/1 ML VIAL IV SCH ×2 (02:09→08:38)
[2016-09-24 03:32] LABS: ABG Base Excess 6.7 MMOL/L (-2.5-2.5); ABG HCO3 31.5 MMOL/L (20-26); ABG Oxygen Saturation 94.9 % (95-100); ABG PCO2 45.3 MM HG (35-48); ABG PO2 80.9 MM HG (80-95); ABG TCO2 32.9 MMOL/L (23-27); Allen Test Positive; Pt O2 Delivery Device Room Air
[2016-09-24 05:54] LABS: Basophils % 0.1 % (0.0-0.8); Hematocrit 41.4 VOL% (35.7-47.0); Hemoglobin 14.4 GM/DL (12.0-16.0); Immature Granulocytes % 0.6 %; Immature Granulocytes Absolute 0.06 #; Lymphocytes # 1.2 10*3/uL (1.4-4.0); Lymphocytes % 12.4 % (21.3-54.2); Mean Corpuscular HGB Conc 34.8 GM/DL (32-36); Mean Corpuscular Hemoglobin 28 PG (27-34); Mean Corpuscular Volume 79.8 FL (87-102); Mean Platelet Volume 11.2 FL (9.6-12.0); Monocytes # 0.6 10*3/uL (0.11-0.8); Neutrophils # 8.1 10*3/uL (1.4-7.4); Neutrophils % 80.9 % (38.7-73.9); Platelet Count 252 T/CUMM (130-400); Red Blood Count 5.19 MC/CUMM (3.8-5.5); Red Cell Distribution Width 12.9 % (9.3-17.3)
[2016-09-24] MEDS: CEFEPIME 1,000 MG in SODIUM CHLORIDE 0.9% 100 ML IV SCH ×3 (06:29→21:02)
[2016-09-24 06:36] LABS: Calcium 8.9 MG/DL (8.5-10.1); Magnesium 3.2 MG/DL (1.8-2.4); Osmolality,Calculated 288.5 MOS/KG (273-304); Potassium 4.6 MMOL/L (3.5-5.1)
[2016-09-24] MEDS: FUROSEMIDE 40 MG/4 ML VIAL IV SCH (08:36)
[2016-09-24] MEDS: PANTOPRAZOLE 40 MG VIAL IV SCH (08:36)
[2016-09-24] MEDS: LISINOPRIL 10 MG TABLET PO SCH (08:38)
[2016-09-24] MEDS: ASPIRIN CHEW 81 MG TABLET PO SCH (08:38)
[2016-09-24] MEDS: INSULIN LISPRO 100 UNIT/ML SUBCUT SCH ×4 (08:47→21:01)
[2016-09-24] MEDS: MULTIVITAMIN LIQUID (CENTRUM) 60 ML BOTTLE PO SCH (09:41)
--- NOTE | 2016-09-24 11:05 | Pulmonology Progress Note ---
Pulmonary - PN: Subj Interval history: Gilberto Zelaya, ANP-BC, GNP-BC, acting as scribe for Dr. Cooper Conroy This is a 61-year-old black female who we saw in pulmonary consultation on 2016. We were asked to manage her pulmonary status and her mechanical ventilation. She came to the emergency room short of breath and required intubation mechanical ventilation. She had hypercarbia and hypoxemia. At this point we know very little about her except her daughter in [place] said that she is a heavy smoker and a heavy drinker. At the time of our initial consult, our impressions were: 1. Acute respiratory failure for oxygen and carbon dioxide. Etiology uncertain. Consider infection. Note that white count is low normal without left shift. Consider other causes such as pulmonary emboli. From a chest x- ray standpoint I did not see any evidence of congestive heart failure although the patient has cardiomegaly. 2. Intubation and mechanical ventilation secondary to #1 and #3 3. Underlying COPD 4. Tobacco abuse 5. Alcohol abuse 6. Presence of other conditions may arise as more history is obtained from either the patient and her family. Family is not presently available. 09/20/2016. Weaning protocol was ordered to begin yesterday but for reasons I am not aware of this was not begun. I have asked that it be begun today. Patient is also supposed to be on physical therapy protocol. Her chest x-ray shows cardiomegaly there is some increased markings in the right middle lung and right lower lung and left lower lung. These probably represent a low-grade infection. CBC was not ordered for the day of admit white count was not impressive. Cold agglutinins Legionella titers are pending sputum for Gram stain cultures and sensitivities have not revealed anything. ABGs on mechanical ventilation FiO2 50% show a pH 7.41, PCO2 of 45, PO2 of 110 and a bicarb of 27.5. Electrolytes are normal. Creatinine is 0.8 with a BUN of 13 natruretic peptide is elevated at 452. Total protein is 6.7 and albumin is low at 3.1 09/23/2016. Patient was extubated on 09/22/2016. She is done well since then.ABGs on FiO2 28% showed pH 7.44, PCO2 46.1, PO2 of 72.7 and a bicarb of 30.2. Doppler venograms done 09/19/2016 showed no evidence of deep venous thrombophlebitis. CT pulmonary arteriograms there are 2 small defects in the segmental pulmonary arteries in the left lower lung. These could be small blood clots but I think there are incidental rather than a result of deep venous thrombophlebitis. Since the patient has hematuria I think it may be the safest thing to stop her heparin. We can still use deep venous thrombophlebitis prevention protocol. CBC is stable. Glucoses are under control. Thyroid function tests are normal. Patient's awake and alert and I am agreeable for her going to the floor Doppler venograms of the lower extremities. 09/19/2016. No deep venous thrombophlebitis Echocardiogram. 09/19/2016. Ejection fraction of 40%. Trace of mitral regurgitation 09/24/2016. Patient was moved from CCU to the medical floor yesterday. CT the chest with PE protocol was again reviewed yesterday. See above. The patient's heparin was discontinued. With the discontinuation of this, her hematuria resolved. In talking with her today, the patient states she smokes 2-3 beers a day. She has tobacco abuse. We discussed the need for tobacco cessation with her today. Medications have been reviewed. We made no changes today. Labs have been reviewed. White count is 10,000 with 80.9% segs; H&H 14.4/41.4; platelet count 252,000; creatinine 0.60, BUN 30, sodium 139, potassium 4.6, magnesium 3.2 (hypermagnesemia); hemoglobin A1c noted to be 7.4% ABGs this morning on an FiO2 of 21% showed a pH of 7.460, PCO2 45.3, PO2 80.9, bicarb 31.5, and oxygen saturation 94.9%. There are no positive cultures. Exam (Progress Note) - Constitutional Vitals: Period Temp Pulse Resp BP Sys/Cast Pulse Ox Last 24 Hr 96.7 F-98.6 F 65-91 16-21 118-174/63-89 88-99 Exam: Chest with coarse large airway congestion; no wheeze Heart with a slightly lateral PMI Abdomen is nontender and nondistended; bowel sounds are positive 4 Extremities with nothing to suggest acute deep venous thrombophlebitis Psychiatric oriented 3 Neurologic long-term motor function appears to be intact Plan: When the patient's medications are converted to oral form, we would suggest Levaquin for 5 days. She also needs prednisone 40 mg daily for 3 days then 20 mg daily for 5 days then 10 mg daily for 7 days then 10 mg every other day for 7 doses. She needs to follow-up with her primary care physician at discharge. She is stable from a pulmonary standpoint. We will sign off. Please reconsult as needed. Results - Labs CBC & BMP: 09/24/16 04:14 09/24/16 04:14
[2016-09-24] MEDS: ENOXAPARIN 40 MG/0.4 ML SYRINGE SUBCUT SCH (11:54)
[2016-09-24] MEDS ORDERED: diphenhydrAMINE CAP 25 MG CAPSULE PO ONE (16:14)
[2016-09-24] MEDS ORDERED: POTASSIUM CHLORIDE RIDER 10 MEQ in PREMIX 1 EACH IV PRN (16:14)
[2016-09-24] MEDS ORDERED: DIAZEPAM 5 MG TABLET PO ONE (16:14)
[2016-09-24] MEDS ORDERED: MAGNESIUM SULF RIDER 2 GM in PREMIX 1 EACH IV PRN (16:14)
--- NOTE | 2016-09-24 16:19 | Cardiology Progress Note ---
I, Meggan Duffy RN, am scribing for, and in the presence of, Jamel Chin MD 16:19. Assessment and Plan - Time spent with patient Time spent with patient: Greater than 30 minutes (1) Abnormal EKG Status: Acute Assessment and plan: 61-year-old black female past medical history of COPD, hypertension, tobacco and alcohol abuse. Now admitted with episode of acute respiratory failure with initial etiology uncertain. Diagnostic workup for acute neurologic process has been benign thus far. After admission, patient had EKG noted to have diffuse symmetric T-wave inversion felt to be of pulmonary etiology. CT angiogram of chest revealed small PE. She has since been extubated, has been stable, and has been transferred from CCU to Medr room. Since admission, she has been evaluated per Dr. Mynor Christianson and Dr. Estrada Cano. SEPTEMBER 24, 2016: ASSESSMENT/PLAN: 1. Ms. Cano is hemodynamically stable and doing better clinically 2. Given her mild cardiomyopathy, deep T-wave inversions suggesting anterior ischemia (no stroke noted on MRI to explain this), and modest troponin elevation (0.2 with no rise and fall), I think she would be best served with heart catheterization from right radial approach to define her coronary anatomy. I have scheduled this for the morning, and she is agreeable to proceed. 3. Her small PE seems unlikely to explain her clinical scenario. 4. Increase Crestor to 40 g daily for high intensity therapy especially given her triglycerides of 900 5. Normal creatinine noted at 0.6 6. On mini dose Lovenox, previously on heparin per I discussed with the patient the risks and benefits of heart catheterization including but not limited to: , stroke, heart attack, vascular damage, reaction to medicine or dye, bleeding requiring blood transfusion, failure of the procedure, and the possible need for planned or emergency surgery. I have answered all the patient's questions regarding the procedure, and the patient is agreeable to proceed. Current Visit: Yes (2) Elevated CPK Status: Acute Current Visit: Yes (3) Pulmonary embolus Status: Acute Current Visit: Yes (4) Accelerated hypertension Status: Chronic Current Visit: Yes (5) COPD (chronic obstructive pulmonary disease) Status: Chronic Current Visit: Yes (6) Hyperlipidemia Status: Chronic Current Visit: Yes (7) Respiratory failure Status: Resolved Current Visit: Yes Cardiology - PN: Subj Interval history: WHEEL ASSEMBLER: DR. MYNOR CHRISTIANSON (NEW) SUMMARY: Ms. Cano is a 61-year-old female with no prior history of cardiac disease. Past medical history includes hypertension, COPD, tobacco abuse. She was admitted September 19, 2016 with severe dyspnea and was subsequently intubated due to acute respiratory failure and transferred to the CCU. Upon admission, her BNP was normal, she denied chest pain, her initial EKG did not show any acute ST-T abnormalities, yet she did require intubation. On 09/20/16, patient had a repeat EKG after new onset T-wave inversions, and EKG revealed deep symmetric T-wave inversion throughout. Cardiology consulted for further review, and Dr. Mynor Christianson evaluated. Lab work revealed a flat troponin of 0.281 but significant elevation of her CPK of greater than 5000, but CK-MB ratio only 0.4%. These results suggestive of possible pulmonary embolus. Due to intubation and sedation, neurologic evaluation unable to be completed to evaluate for possibility of acute CVA. CT of the head was benign for acute process, but CT angiogram revealed evidence of a small pulmonary embolus. Anticoagulation initiated with IV heparin and was discontinued on 09/23 due to hematuria with elevated PTT. Patient was extubated on 09/22, had no recurrent respiratory distress, and she was transferred from CCU to [facility] room on 09/23. However, she has also been noted to have an element of encephalopathy with a degree of confusion. This is under evaluation. Echocardiogram on 09/19 (technically difficult study) with LV ejection fraction 40%, RV normal size and function and trace MR, TR, PV regurgitation. SEPTEMBER 24, 2016: Ms. Cano is seen today, and she is resting quietly in no acute distress. She has done well overnight since transfer from the CCU yesterday. She had MRI of the brain yesterday, was negative for acute findings, but did have minimal atrophy and chronic microvascular changes. Ammonia level 28. Patient is awake, alert, and oriented this morning. Denies chest discomfort, dyspnea, or other overt anginal complaint at this time. Admits to some diarrhea overnight and this morning. She is receiving assistance from nursing staff to complete her ADLs. EKG and cardiac monitoring is without ischemic change or other findings. Afebrile, vitals stable. Potassium is 4.6, and magnesium is 3.2. She has been hyperglycemic without previous known history of diabetes. Hemoglobin A1c yesterday 7.4. Patient is being evaluated for swing bed facility placement. Exam (Progress Note) - Constitutional Vitals: Period Temp Pulse Resp BP Sys/Csat Pulse Ox Last 24 Hr 96.7 F-97.9 F 14- 16-67 118-174/63-89 88-100 Exam: General: Appears well developed, well nourished. No acute distress. HEENT: Normocephalic, atraumatic Neck: Supple Neck, Midline Trachea, No Bruit, No JVD Cardiac: Regular rhythm, No Murmur, no gallop, no rub. No bradycardia, tachycardia, or arrhythmia. Lungs: Lung sounds slightly coarse but overall clear to auscultation bilaterally. No wheeze, rale, rhonchi Neuro: Difficult to assess as the patient is intubated and sedated Abdomen: Soft, Active Bowel Sounds, No Masses, No Pulsations/Bruits Skin: Normal color, no rash. Skin is warm and dry. Extremities: No Clubbing, No Cyanosis, No Edema, Normal Upper Extr. Pulses, normal lower ext pulses Musculoskeletal: No acute abnormality noted Psychiatric: Normal affect, normal mood. She is oriented x 3 and is appropriate today. Result/EKG - Labs CBC & BMP: 09/24/16 04:14 09/24/16 04:14 Lab Results: I have reviewed the past 24 hour labs Labs: Laboratory Results - last 24 hr 09/23/16 09/23/16 09/23/16 09:18 09:24 11:21 WBC RBC Hgb Hct MCV MCH MCHC RDW Plt Count MPV Neut % (Auto) Lymph % (Auto) Noble % (Auto) Eos % (Auto) Baso % (Auto) Neut # (Auto) Lymph # (Auto) Noble # (Auto) Eos # (Auto) Baso # (Auto) Immature Gran % Nucleated RBC % Immature Gran # Nucleated RBCs # Circ Anticoag PTT ABG pH ABG pCO2 ABG pO2 ABG HCO3 ABG Total CO2 ABG O2 Saturation ABG Base Excess FiO2 Sodium Potassium Chloride Carbon Dioxide Anion Gap BUN Creatinine GFR Calculation BUN/Creatinine Ratio Glucose POC Glucose 112 H Hemoglobin A1c 7.4 H Calculated Osmolality Calcium Magnesium Ammonia 28 09/23/16 09/23/16 09/23/16 16:04 18:21 18:30 WBC RBC Hgb Hct MCV MCH MCHC RDW Plt Count MPV Neut % (Auto) Lymph % (Auto) Noble % (Auto) Eos % (Auto) Baso % (Auto) Neut # (Auto) Lymph # (Auto) Noble # (Auto) Eos # (Auto) Baso # (Auto) Immature Gran % Nucleated RBC % Immature Gran # Nucleated RBCs # Circ Anticoag PTT 25.7 D ABG pH ABG pCO2 ABG pO2 ABG HCO3 ABG Total CO2 ABG O2 Saturation ABG Base Excess FiO2 Sodium Potassium Chloride Carbon Dioxide Anion Gap BUN Creatinine GFR Calculation BUN/Creatinine Ratio Glucose POC Glucose 217 H 252 H Hemoglobin A1c Calculated Osmolality Calcium Magnesium Ammonia 09/24/16 09/24/16 09/24/16 03:21 04:14 04:14 WBC 10.0 RBC 5.19 Hgb 14.4 Hct 41.4 MCV 79.8 L MCH 28 MCHC 34.8 RDW 12.9 Plt Count 252 MPV 11.2 Neut % (Auto) 80.9 H Lymph % (Auto) 12.4 L Noble % (Auto) 6.0 Eos % (Auto) 0.0 Baso % (Auto) 0.1 Neut # (Auto) 8.1 H Lymph # (Auto) 1.2 L Noble # (Auto) 0.6 Eos # (Auto) 0.0 Baso # (Auto) 0.0 Immature Gran % 0.6 Nucleated RBC % 0.0 Immature Gran # 0.06 Nucleated RBCs # 0.00 Circ Anticoag PTT ABG pH 7.460 H ABG pCO2 45.3 ABG pO2 80.9 ABG HCO3 31.5 H ABG Total CO2 32.9 H ABG O2 Saturation 94.9 L ABG Base Excess 6.7 H FiO2 21.00 Sodium 139 Potassium 4.6 Chloride 102 Carbon Dioxide 31 Anion Gap 10.6 BUN 30 H Creatinine 0.60 GFR Calculation 141 BUN/Creatinine Ratio 50.00 H Glucose 203 H POC Glucose Hemoglobin A1c Calculated Osmolality 288.5 Calcium 8.9 Magnesium 3.2 H Ammonia - Diagnostic Findings Procedure: Chest x-ray: image reviewed by me, report reviewed by me - EKG EKG results: interpreted by me, no acute changes EKG shows: sinus rhythm Giuseppe Perez Randall Scott, MD, personally performed the services described in this documentation, ascribed by Meggan Duffy RN in my presence, and it is both accurate and complete 619 .
--- NOTE | 2016-09-24 16:21 | Hospitalist Progress Note ---
Assessment and Plan (1) Pulmonary embolus Status: Acute Assessment and plan: Dr. Conroy has reviewed the CT and feels there are no evidence of pulmonary embolus. Patient was taken off the heparin. She will resume DVT prophylaxis only. Patient's hematuria immediately resolved after stopping the heparin. Current Visit: Yes (2) Hematuria Status: Acute Assessment and plan: See comment under pulmonary embolus above. Hematuria is completely resolved. Rivera removed. Current Visit: Yes (3) Congestive heart failure Status: Acute Assessment and plan: Continue lisinopril once a day. Unable to tolerate Coreg at this time. continue lasix 40 mg po daily Current Visit: Yes Qualifiers: Qualified Code(s): I50.23 - Acute on chronic systolic (congestive) heart failure (4) Respiratory failure Status: Resolved Assessment and plan: Patient doing well. Dr. Conroy will sign off. Current Visit: Yes (5) Abnormal EKG Status: Acute Assessment and plan: Cardiology following no evidence of stroke found. Current Visit: Yes (6) COPD (chronic obstructive pulmonary disease) Status: Chronic Assessment and plan: Continue duo nebs, steroids and cefepime Current Visit: Yes (7) Acute encephalopathy Status: Acute Assessment and plan: Ammonia level is normal. MRI of brain shows no evidence of acute stroke. Current Visit: Yes (8) Hyperglycemia Status: Acute Assessment and plan: Hemoglobin A1c 7.4. Patient will need diabetic education. We will start metformin 500 mg p.o. daily. Will lower dose of steroids. Current Visit: Yes (9) Alcoholic Status: Acute Assessment and plan: Liver enzymes have improved. No evidence of DTs. Normal ammonia level. Current Visit: Yes Hospitalist: Subjective Interval history: Rivera was removed. BMS will be removed also today. We are looking into rehab for her. She has agreed to go to rehab. PT will evaluate her. Kevin Ashton is considering her. She is doing well according to Dr. Conroy and he has signed off. Exam - Constitutional Vitals: Period Temp Pulse Resp BP Sys/Cast Pulse Ox Last 24 Hr 97.1 F-98.6 F 65-91 16-20 115-174/56-82 90-99 Exam: Heart Rate-[RRR] Lungs-[CTAB] GI-[+bs soft, NT] Ext-[no edema] Neuro [Motor 5/5], [alert and oriented times 2] psych [normal mood and flat affect] General [no acute distress] Results - Labs CBC & BMP: 09/24/16 04:14 09/24/16 04:14 Lab Results: I have reviewed the past 24 hour labs - Diagnostic Findings Procedure: MRI: report reviewed by me (No evidence of acute stroke)
[2016-09-24] MEDS: ROSUVASTATIN 20 MG TABLET PO SCH (21:01)
[2016-09-25] MEDS: ALBUTEROL/IPRATROPIUM 3 ML NEB RESP TX SCH ×6 (03:58→23:39)
[2016-09-25 05:24] LABS: Basophils % 0.1 % (0.0-0.8); Eosinophils % 0.2 % (0.00-10.9); Hematocrit 39.4 VOL% (35.7-47.0); Hemoglobin 13.9 GM/DL (12.0-16.0); Immature Granulocytes % 0.7 %; Immature Granulocytes Absolute 0.08 #; Lymphocytes % 24.8 % (21.3-54.2); Mean Corpuscular HGB Conc 35.3 GM/DL (32-36); Mean Corpuscular Hemoglobin 28 PG (27-34); Mean Corpuscular Volume 79.6 FL (87-102); Mean Platelet Volume 10.6 FL (9.6-12.0); Monocytes % 8.2 % (1.7-12.7); Neutrophils # 7.9 10*3/uL (1.4-7.4); Platelet Count 249 T/CUMM (130-400); Red Blood Count 4.95 MC/CUMM (3.8-5.5); White Blood Count 11.9 T/CUMM (4-12)
[2016-09-25 06:00] LABS: Calcium 8.4 MG/DL (8.5-10.1); Osmolality,Calculated 287.4 MOS/KG (273-304); Potassium 4.2 MMOL/L (3.5-5.1)
[2016-09-25] MEDS ORDERED: diphenhydrAMINE CAP 25 MG CAPSULE PO ONE (06:00)
[2016-09-25] MEDS ORDERED: DIAZEPAM 5 MG TABLET PO ONE (06:00)
[2016-09-25] MEDS: CEFEPIME 1,000 MG in SODIUM CHLORIDE 0.9% 100 ML IV SCH ×3 (06:15→23:52)
[2016-09-25 06:35] LABS: Calcium 8.4 MG/DL (8.5-10.1); Osmolality,Calculated 289.3 MOS/KG (273-304); Potassium 4.2 MMOL/L (3.5-5.1)
[2016-09-25] MEDS ORDERED: NITROGLYCERIN DRIP 50 MG/250 ML BOTTLE IV ONE (06:53)
[2016-09-25] MEDS ORDERED: VERAPAMIL 5 MG/2 ML VIAL ONE (06:53)
[2016-09-25] MEDS ORDERED: LIDOCAINE 1% 20 ML VIAL ONE (06:53)
[2016-09-25] MEDS: INSULIN LISPRO 100 UNIT/ML SUBCUT SCH ×4 (07:35→22:03)
--- NOTE | 2016-09-25 07:36 | EKG Report ---
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
[2016-09-25] MEDS ORDERED: metFORMIN 500 MG TABLET PO SCH (08:00)
[2016-09-25] MEDS ORDERED: FUROSEMIDE 40 MG TABLET PO SCH (09:00)
[2016-09-25] MEDS ORDERED: predniSONE 20 MG TABLET PO SCH (09:00)
[2016-09-25] MEDS ORDERED: MIDAZOLAM 2 MG/2 ML VIAL ONE (09:01)
[2016-09-25] MEDS ORDERED: HYDROmorphone 2 MG/1 ML VIAL ONE (09:01)
[2016-09-25] MEDS ORDERED: ASPIRIN 325 MG TABLET ONE (09:14)
[2016-09-25] MEDS ORDERED: ENOXAPARIN 60 MG/0.6 ML SYRINGE ONE (09:19)
[2016-09-25] MEDS ORDERED: NITROGLYCERIN SL 0.4 MG TABLET SL PRN (09:31)
[2016-09-25] MEDS ORDERED: ZALEPLON 5 MG CAPSULE PO PRN (09:31)
[2016-09-25] MEDS ORDERED: ONDANSETRON 4 MG/2 ML VIAL IV PRN (09:31)
--- NOTE | 2016-09-25 09:35 | Cardiac Catheterization ---
Date of Procedure:: 09/25/16 Post-op diagnosis: same Procedure: Procedure performed: 1. Left heart catheterization 2. Coronary angiography 3. Left ventriculography Brief clinical summary: Ms. Cano is a 61-year-old who had peripheral PE of modest size with significant shortness of breath and transient T-wave inversions across the precordial leads. She had minimal troponin elevation of 0.2. Her echocardiogram suggested mild cardiomyopathy of 40%, however this was a very poor quality study and EF was questionable. Description of procedure: After obtaining informed consent the patient transferred to the catheterization lab, and the right wrist was prepped and draped in the usual sterile fashion. Next a short 6 Sami sheath was placed in the right radial artery using the Seldinger technique after the patient received IV sedation, and local anesthetic. I then injected a vasodilator cocktail into the sheath. We gave her 0.5 mg per kilogram of intravenous Lovenox prior to the procedure. Next a 5 Sami TIG catheter was advanced and engaged to the left coronary artery after which angiogram was performed in multiple views. This was then pulled back and manipulated to engage the right coronary artery where angiograms were taken multiple views. The catheter was removed over a J-wire. Hemostasis was obtained with a TR band, using "patent hemostasis" technique. The patient was transferred from the catheterization lab in good condition. Coronary angiography: Left main coronary arteries noted ultra free disease. Left anterior descending artery is of average caliber with only minimal irregularities and wraps well around the apex. There is a thin first diagonal branch with 99% ostial disease (at most 2 mm vessel) and a tiny D2 branch. The circumflex gives off a very thin small OM1 and OM 2 branch and a large OM 3 as well as a thin ON for branch. There are at most minimal irregularities. The right quires a dominant vessel is of average caliber. There is a thin PDA which appears to come off a high acute marginal branch. There is also a couple of thin posterolateral branch with only mild irregularity. Left ventriculogram: Left ventricle normal size and normal LV systolic function. Ejection fraction 60% without segmental wall surrounded. There is no significant mitral regurgitation. Impression: 1. Normal LV systolic function with ejection fraction estimated to be 60% without segmental wall abnormality 2. Right dominant system 3. Trivial CAD with one 99% ostial lesion of a thin first diagonal branch otherwise no angiographic coronary artery disease is noted Recommendation discussion: It is good to see Ms. Cano has a normal LV function (echocardiogram showed 40% if there was a very poor study in the conclusion was questionable). It is possible that her critical diagonal branch caused a mild troponin elevation. However the branches so small it should not cause cardiomyopathy or severe shortness of breath has occurred with her presentation. Again this is a very thin branch and is at most 2 mm in diameter. Medical therapy is recommended with statin therapy and antiplatelet therapy with baby aspirin. Anesthesia: minimal conscious sedation Surgeon / Physician: Jamel Chin Shactor: other Estimated blood loss: minimal Specimens: none sent Condition: stable Disposition: floor - Medications / Follow-up
--- NOTE | 2016-09-25 09:49 | Cardiology Progress Note ---
Assessment and Plan (1) Abnormal EKG Status: Acute Assessment and plan: 61-year-old black female past medical history of COPD, hypertension, tobacco and alcohol abuse. Now admitted with episode of acute respiratory failure with initial etiology uncertain. Diagnostic workup for acute neurologic process has been benign thus far. After admission, patient had EKG noted to have diffuse symmetric T-wave inversion felt to be of pulmonary etiology. CT angiogram of chest revealed small PE. She has since been extubated, has been stable, and has been transferred from CCU to Medr room. Since admission, she has been evaluated per Dr. Mynor Christianson and Dr. Estrada Cano. SEPTEMBER 24, 2016: ASSESSMENT/PLAN: 1. Ms. Cano is hemodynamically stable and doing better clinically 2. Given her mild cardiomyopathy, deep T-wave inversions suggesting anterior ischemia (no stroke noted on MRI to explain this), and modest troponin elevation (0.2 with no rise and fall), I think she would be best served with heart catheterization from right radial approach to define her coronary anatomy. I have scheduled this for the morning, and she is agreeable to proceed. 3. Her small PE seems unlikely to explain her clinical scenario. 4. Increase Crestor to 40 g daily for high intensity therapy especially given her triglycerides of 900 5. Normal creatinine noted at 0.6 6. On mini dose Lovenox, previously on heparin per I discussed with the patient the risks and benefits of heart catheterization including but not limited to: , stroke, heart attack, vascular damage, reaction to medicine or dye, bleeding requiring blood transfusion, failure of the procedure, and the possible need for planned or emergency surgery. I have answered all the patient's questions regarding the procedure, and the patient is agreeable to proceed. Current Visit: Yes (2) Elevated CPK Status: Acute Current Visit: Yes (3) Pulmonary embolus Status: Acute Current Visit: Yes (4) Accelerated hypertension Status: Chronic Current Visit: Yes (5) COPD (chronic obstructive pulmonary disease) Status: Chronic Current Visit: Yes (6) Hyperlipidemia Status: Chronic Current Visit: Yes (7) Respiratory failure Status: Resolved Current Visit: Yes Cardiology - PN: Subj Interval history: Given Ms. Cano has normal LV function and has only one thin branch with significant stenosis which will be treated medically, she can be discharged this afternoon. Her right radial band should be off in about 2 hours. She will follow with Dr. Christianson in about the next 2 weeks time. Exam (Progress Note) - Constitutional Vitals: Period Temp Pulse Resp BP Sys/Cast Pulse Ox Last 24 Hr 97.1 F-98.5 F 68-83 16-20 111-124/55-64 90-100 Result/EKG - Labs CBC & BMP: 09/25/16 04:44 09/25/16 04:44 Labs: Laboratory Results - last 24 hr 09/19/16 09/24/16 09/24/16 10:43 11:16 15:19 WBC RBC Hgb Hct MCV MCH MCHC RDW Plt Count MPV Neut % (Auto) Lymph % (Auto) [place] % (Auto) Eos % (Auto) Baso % (Auto) Neut # (Auto) Lymph # (Auto) [place] # (Auto) Eos # (Auto) Baso # (Auto) Immature Gran % Nucleated RBC % Immature Gran # Nucleated RBCs # Sodium Potassium Chloride Carbon Dioxide Anion Gap BUN Creatinine GFR Calculation BUN/Creatinine Ratio Glucose POC Glucose 226 H 255 H Calculated Osmolality Calcium Magnesium Legionella pneumophila Ab Negative 09/24/16 09/25/16 09/25/16 18:59 04:44 04:44 WBC 11.9 RBC 4.95 Hgb 13.9 Hct 39.4 MCV 79.6 L MCH 28 MCHC 35.3 RDW 13.0 Plt Count 249 MPV 10.6 Neut % (Auto) 66.0 Lymph % (Auto) 24.8 [place] % (Auto) 8.2 Eos % (Auto) 0.2 Baso % (Auto) 0.1 Neut # (Auto) 7.9 H Lymph # (Auto) 3.0 [place] # (Auto) 1.0 H Eos # (Auto) 0.0 Baso # (Auto) 0.0 Immature Gran % 0.7 Nucleated RBC % 0.0 Immature Gran # 0.08 Nucleated RBCs # 0.00 Sodium 141 Potassium 4.2 Chloride 102 Carbon Dioxide 30 Anion Gap 13.2 BUN 32 H Creatinine 0.60 GFR Calculation 141 BUN/Creatinine Ratio 53.00 H Glucose 133 H POC Glucose 225 H Calculated Osmolality 289.3 Calcium 8.4 L Magnesium 3.0 H Legionella pneumophila Ab 09/25/16 09/25/16 04:44 07:27 WBC RBC Hgb Hct MCV MCH MCHC RDW Plt Count MPV Neut % (Auto) Lymph % (Auto) [place] % (Auto) Eos % (Auto) Baso % (Auto) Neut # (Auto) Lymph # (Auto) [place] # (Auto) Eos # (Auto) Baso # (Auto) Immature Gran % Nucleated RBC % Immature Gran # Nucleated RBCs # Sodium 140 Potassium 4.2 Chloride 102 Carbon Dioxide 31 Anion Gap 11.2 BUN 33 H Creatinine 0.60 GFR Calculation 141 BUN/Creatinine Ratio 55.00 H Glucose 134 H POC Glucose 133 H Calculated Osmolality 287.4 Calcium 8.4 L Magnesium Legionella pneumophila Ab
--- NOTE | 2016-09-25 10:24 | Discharge Summary ---
Addendum entered and electronically signed by Kaley Sanchez NP 09/25/16 10: 25: Addendum to previous note to include patient's heart catheterization that was performed. Patient was discovered to have normal LV function with 'only 1 branch with significant stenosis for which the patient will be treated medically '. Cardiology has also cleared patient for discharge with a follow-up with Dr. Christianson in 2 weeks. Original Note: <Kaley Sanchez - Last Filed: 09/25/16 09:42> Hospital Course - Hospital Course Hospital Course: Ms. Cano is a 61-year-old black female patient with a history of COPD, tobacco and alcohol abuse who presented to the ED on with complaints of progressively worsening shortness of breath. On arrival to the ED, patient was found to be in respiratory distress. Initial ABG value showed a PH of 7.208 PCO2 58.2 PCO2 363. The patient was intubated and placed on mechanical ventilation. Patient was admitted to the hospitalist service and placed in the CCU for further evaluation and treatment. Much of the patient's history is unknown because she was intubated and the only history gathered was that the patient was a heavy smoker and drinker from her daughter who state in [place]. Patient had Doppler venograms of lower extremities performed which showed no DVT. Patient also had echocardiogram which revealed a EF of 40% and trace of mitral regurg. Pulmonary was consulted to manage mechanical ventilation pulmonary status. Initial chest x-ray showed mild cardiomegaly and interstitial changes suggestive of pulmonary edema. On 09-20-16 cardiology was consulted to see the patient after an abnormal finding on EKG noted by patient' s nurse and reported to the doctor. The patient had a T-wave inversion in elevation of CPK. Because of the of the EKG and lab results cardiology suspect that the patient may have had a stroke and he started the CT PE protocol and obtained a CT of the head he which showed no acute changes. Follow up MRI was negative for acute changes but patient did have minimal atrophy and chronic microvascular changes. CT angiogram does show evidence of PE. Patient was started on heparin. Patient was continued to be followed by both cardiology and pulmonology. She was extubated on 09-22-16 and transferred to the floor on 09-24. Pt. has done well since extubation and transfer to the floor. Patient's labs have stabilized. Patient's blood sugars were elevated however and A1c was noted to be 7.4 so patient was started on metformin and given diabetic education. Patient was evaluated for swing bed facility. Pulmonary has signed off the recommendation that patient be placed on p.o. Levaquin for 5 days and prednisone 40 mg initially then tapered. Once swing bed facility is available patient will be ready for discharge pending no additional changes. MD to follow. Specialty Discharge - Follow Up or Referrals Follow up with: Mendoza Christianson MD [Physician] - 10/08/16 8:00 am Discharge Plan - Discharge Data Disposition: Disch To Home/Self Care - Discharge Medications New Levofloxacin Tab [Levaquin Tab] 750 mg PO DAILY #5 tablet Lisinopril [Prinivil] 10 mg PO DAILY #30 tablet Multivitamin Liquid (Centrum) [Centrum Liquid] 15 ml PO DAILY bottle metFORMIN [Glucophage] 500 mg PO DAILY W/BREAKFAST #30 tablet predniSONE TAB [PredniSONE] 20 mg PO DAILY #10 tablet Aspirin Chew Tab 81 mg PO DAILY tablet Rosuvastatin [Crestor] 40 mg PO BEDTIME #60 tablet - Follow Up or Referral Follow Up: Mendoza Christianson MD [Physician] - 10/08/16 8:00 am Cooper Jin MD [Physician] - 2 Weeks pmdr fortino [Other] - 2 Weeks - Forms/Instructions Instructions: Coronary Artery Disease (GEN), Heart Healthy Diet (GEN), [facility] Cardiac Catheterization Instructions -Radial Artery Exam - Constitutional Vitals: Period Temp Pulse Resp BP Sys/Cast Pulse Ox Last 24 Hr 97 F-98 F 70-88 16-20 97-122/53-70 93-99 Discharge Results Procedures and tests throughout hospitalization: Pending Orders 09/26/16 04:00 XR chest 1V portable IN AM 09/27/16 04:00 BMP w/ Mg [Basic Metabolic Panel w/Mg] IN AM CBC [Comp Blood Count Auto Diff] IN AM Labs on day of discharge: Labs from last 24 hours 09/26/16 09/26/16 09/26/16 07:46 05:07 05:07 WBC 11.1 RBC 4.61 Hgb 13.0 Hct 37.2 MCV 80.7 L MCH 28 MCHC 34.9 RDW 12.7 Plt Count 248 MPV 10.5 Neut % (Auto) 69.4 Lymph % (Auto) 23.5 [place] % (Auto) 6.0 Eos % (Auto) 0.4 Baso % (Auto) 0.1 Neut # (Auto) 7.7 H Lymph # (Auto) 2.6 [place] # (Auto) 0.7 Eos # (Auto) 0.0 Baso # (Auto) 0.0 Immature Gran % 0.6 Nucleated RBC % 0.0 Immature Gran # 0.07 Nucleated RBCs # 0.00 Sodium 141 Potassium 4.1 Chloride 104 Carbon Dioxide 29 Anion Gap 12.1 BUN 25 H Creatinine 0.50 L GFR Calculation 150 BUN/Creatinine Ratio 50.00 H Glucose 131 H POC Glucose 110 H Calculated Osmolality 286.3 Calcium 8.4 L Magnesium 2.6 H B-Natriuretic Peptide U Rx/OTC Drugs Detect 09/25/16 09/25/16 09/25/16 19:22 18:55 16:46 WBC RBC Hgb Hct MCV MCH MCHC RDW Plt Count MPV Neut % (Auto) Lymph % (Auto) [place] % (Auto) Eos % (Auto) Baso % (Auto) Neut # (Auto) Lymph # (Auto) [place] # (Auto) Eos # (Auto) Baso # (Auto) Immature Gran % Nucleated RBC % Immature Gran # Nucleated RBCs # Sodium Potassium Chloride Carbon Dioxide Anion Gap BUN Creatinine GFR Calculation BUN/Creatinine Ratio Glucose POC Glucose 245 H 215 H Calculated Osmolality Calcium Magnesium B-Natriuretic Peptide 3 U Rx/OTC Drugs Detect 09/25/16 09/19/16 13:55 09:19 WBC RBC Hgb Hct MCV MCH MCHC RDW Plt Count MPV Neut % (Auto) Lymph % (Auto) [place] % (Auto) Eos % (Auto) Baso % (Auto) Neut # (Auto) Lymph # (Auto) [place] # (Auto) Eos # (Auto) Baso # (Auto) Immature Gran % Nucleated RBC % Immature Gran # Nucleated RBCs # Sodium Potassium Chloride Carbon Dioxide Anion Gap BUN Creatinine GFR Calculation BUN/Creatinine Ratio Glucose POC Glucose 238 H Calculated Osmolality Calcium Magnesium B-Natriuretic Peptide U Rx/OTC Drugs Detect See comments DS: Provider Date of admission: 09/19/16 01:31 Primary care physician: . No PCP Attending physician on admission: Jaycob Wade MD Consults: 09/19/16 01:37 Consult to Physician [CONS] Routine Comment: On-call physician/acute respiratory failure Consulting Provider: Cooper Jin Consulting Provider Notified: Yes Consult to Specialist Group: Pulmonology When should Consulting Provider be notified: In am Person Notified: dr jin (on rounds ) Date Notified: 09/19/16 Time Notified: 08:53 09/19/16 01:42 Consult to Dietitian [CONS] Routine Reason for Dietitian: TF-Initiate/Manage 09/20/16 11:56 Consult to Physician [CONS] Routine Comment: Consulting Provider: Consult to Specialist Group: Cardiology When should Consulting Provider be notified: Now Person Notified: Chula Smyth Date Notified: 09/20/16 Time Notified: 11:57 09/24/16 08:58 Consult to Physical Therapy [CONS] Routine Reason for Physical Therapy: Evaluate and Treat 09/24/16 08:59 Consult to Case Mgmt/Social Srvs [CONS] Routine Reason for Case Mgmt/Social Srvs: Rehab 09/24/16 16:33 Consult to [facility], Educator [CONS] Routine Reason for Gm: Diabetes Education 09/25/16 09:31 Consult to Cardiac Rehabilitation [CONS] Routine Reason for Cardiac Rehabilitation: Appt Out Pt Cardiac Rehab Consult Comment: nstemi Discharging clinician: Kaley Sanchez NP <Char Hinojosa R - Last Filed: 09/26/16 08:04> Hospital Course - Hospital Course Hospital Course: Cardiac cath performed yesterday. Patient had a 99% ostial lesion in the first diagonal branch. No stent was placed. Medical therapy recommended. If patient is not accepted to rehab today she will be discharged home. Patient had hematuria secondary to heparin for the pulmonary embolus. Dr. Jin reviewed the CT and does not feel she has pulmonary embolus and does not require anticoagulation and this was discontinued. Patient does have new onset diabetes with an A1c of 7.4. She cannot be restarted on metformin until Friday. - Time spent with patient Time with patient DS: Greater than 30 minutes (50 min) Diagnosis - Discharge Diagnosis (1) Hematuria Status: Acute (2) Congestive heart failure Status: Acute (3) Respiratory failure Status: Resolved (4) Abnormal EKG Status: Acute (5) COPD (chronic obstructive pulmonary disease) Status: Chronic (6) Acute encephalopathy Status: Acute (7) Alcoholic Status: Acute (8) Diabetes Status: Acute Discharge Plan - Discharge Data Condition at Discharge: Stable Discharge Diet: diabetic diet Activity: resume usual activities as tolerated, wear oxygen at all times (only if qualifies ) Hygiene: no restrictions Weight Bearing at Discharge: full weight bearing Driving: no restrictions Exam - Constitutional General appearance: normal weight, no acute distress - Respiratory Respiratory exam: Present: clear to auscultation bilaterally - Cardiovascular Cardiovascular exam: Present: regular rate and rhythm. Absent: systolic murmur - GI/Abdominal GI/Abdominal exam: Present: normal bowel sounds, soft. Absent: tenderness - Extremities Exam Extremities exam: Present: normal inspection, normal capillary refill - Neurological Exam Neurological exam: Present: alert, oriented X3 - Psychiatric Psychiatric exam: Present: normal affect, normal mood
[2016-09-25] MEDS: ENOXAPARIN 40 MG/0.4 ML SYRINGE SUBCUT SCH (15:19)
[2016-09-25] MEDS: PANTOPRAZOLE 40 MG VIAL IV SCH (15:19)
[2016-09-25] MEDS: ASPIRIN CHEW 81 MG TABLET PO SCH (15:22)
[2016-09-25] MEDS: LISINOPRIL 10 MG TABLET PO SCH (15:23)
[2016-09-25] MEDS: MULTIVITAMIN LIQUID (CENTRUM) 60 ML BOTTLE PO SCH (17:45)
--- NOTE | 2016-09-25 18:16 | Hospitalist Progress Note ---
Assessment and Plan (1) Hematuria Status: Acute Assessment and plan: resolved Current Visit: Yes (2) Congestive heart failure Status: Acute Assessment and plan: Continue lisinopril and lasix Current Visit: Yes Qualifiers: Congestive heart failure type: systolic Congestive heart failure chronicity : acute on chronic Qualified Code(s): I50.23 - Acute on chronic systolic ( congestive) heart failure (3) Respiratory failure Status: Resolved Assessment and plan: check bnp, chest xray Current Visit: Yes (4) Abnormal EKG Status: Acute Assessment and plan: s/p cardiac cath trivial cad with one 99% ostial lesion of first diagonal branch. Current Visit: Yes (5) COPD (chronic obstructive pulmonary disease) Status: Chronic Assessment and plan: Continue duo nebs, steroids and cefepime Current Visit: Yes (6) Acute encephalopathy Status: Acute Assessment and plan: MRI of brain shows no evidence of acute stroke. Current Visit: Yes (7) Alcoholic Status: Acute Assessment and plan: Liver enzymes have improved. No evidence of DTs. Normal ammonia level. Current Visit: Yes (8) Diabetes Status: Acute Assessment and plan: due to recent cath no metformin, glyburide Current Visit: Yes Hospitalist: Subjective Interval history: Heart cath unremarkable. Daughter was in room. Patient doing well. Additional rehab needed. Still awaiting approval from insurance. [facility] a bed for her if approved. Patient does live with her fianc. Patient was working prior to coming to the hospital. daughter lives next door. Exam - Constitutional Vitals: Period Temp Pulse Resp BP Sys/Cast Pulse Ox Last 24 Hr 97 F-98.1 F 68-87 16-20 97-122/55-70 92-100 Exam: Heart Rate-[RRR] Lungs-[Clear but diminished] GI-[+bs soft, NT] Ext-[no edema] Neuro [Motor 5/5], [alert and oriented times 2] psych [normal mood and flat affect] General [no acute distress] Results - Labs CBC & BMP: 09/25/16 04:44 09/25/16 04:44 Lab Results: I have reviewed the past 24 hour labs Labs: blood cx times 2, urine cx negative Specialty Discharge - Follow Up or Referrals Follow up with: Mendoza Christianson MD [Physician] - 10/08/16 8:00 am
[2016-09-25] MEDS: ROSUVASTATIN 20 MG TABLET PO SCH (22:02)
[2016-09-26] MEDS: ALBUTEROL/IPRATROPIUM 3 ML NEB RESP TX SCH ×3 (03:18→11:14)
[2016-09-26 05:17] VITALS: BP 103/53
[2016-09-26 06:04] LABS: Basophils % 0.1 % (0.0-0.8); Eosinophils % 0.4 % (0.00-10.9); Hematocrit 37.2 VOL% (35.7-47.0); Immature Granulocytes % 0.6 %; Immature Granulocytes Absolute 0.07 #; Lymphocytes # 2.6 10*3/uL (1.4-4.0); Lymphocytes % 23.5 % (21.3-54.2); Mean Corpuscular HGB Conc 34.9 GM/DL (32-36); Mean Corpuscular Hemoglobin 28 PG (27-34); Mean Corpuscular Volume 80.7 FL (87-102); Mean Platelet Volume 10.5 FL (9.6-12.0); Monocytes # 0.7 10*3/uL (0.11-0.8); Neutrophils # 7.7 10*3/uL (1.4-7.4); Neutrophils % 69.4 % (38.7-73.9); Platelet Count 248 T/CUMM (130-400); Red Blood Count 4.61 MC/CUMM (3.8-5.5); Red Cell Distribution Width 12.7 % (9.3-17.3); White Blood Count 11.1 T/CUMM (4-12)
[2016-09-26 06:34] LABS: Calcium 8.4 MG/DL (8.5-10.1); Magnesium 2.6 MG/DL (1.8-2.4); Osmolality,Calculated 286.3 MOS/KG (273-304); Potassium 4.1 MMOL/L (3.5-5.1)
[2016-09-26] MEDS: INSULIN LISPRO 100 UNIT/ML SUBCUT SCH (07:39)
[2016-09-26] MEDS ORDERED: glyBURIDE 5 MG TABLET PO SCH (08:00)
[2016-09-26] MEDS ORDERED: predniSONE 20 MG TABLET PO SCH (08:07)
[2016-09-26] MEDS: LISINOPRIL 10 MG TABLET PO SCH (08:33)
[2016-09-26] MEDS: ASPIRIN CHEW 81 MG TABLET PO SCH (08:33)
[2016-09-26] MEDS: PANTOPRAZOLE 40 MG VIAL IV SCH (08:34)
[2016-09-26] MEDS: MULTIVITAMIN LIQUID (CENTRUM) 60 ML BOTTLE PO SCH (08:35)
[2016-09-26] MEDS: CEFEPIME 1,000 MG in SODIUM CHLORIDE 0.9% 100 ML IV SCH (08:36)
--- NOTE | 2016-09-26 09:20 | XRay Report ---
XR chest 1V portable Indication: Shortness of breath. Chest one view: Since 09/23/2016, mild cardiomegaly, normal mediastinal contour and diffuse interstitial prominence of the lungs with an element of peribronchial thickening appears stable. No new infiltrates are demonstrated. Very slight increased bibasilar atelectasis noted. Impression: Minimal increased atelectasis of the lung bases. PROCEDURE INTERPRETED AT [facility] DEPARTMENT OF RADIOLOGY Final Report Signed by: Chip Sanford M.D.
== END 2016-09-26 13:05 | disposition home or self-care (01) | DRG 208 ==
LOC: N.ED 23:29 → SUATTDRO 09-19 01:31 → N.EDINP 09-19 01:31 → N.CC 09-19 02:24 → N.4E 09-23 14:37
PROVIDERS: ADMIT Internal Medicine Infectious Disease; ATTEND Internal Medicine
PROC: CLCCHCL (ICD-10-PCS; 2016-09-25 09:45)